=== PATIENT | female | born 1940 | race Caucasian/White ===

== ENCOUNTER → 2019-12-23 10:09 | Outpatient (BNVA) | payer MEDICARE, BC, SELFPAY | PROVIDERS: Family Provider Nurse Practitioner; PCP Nurse Practitioner; Visit Provider Nurse Practitioner | DX: E11.9 Type 2 diabetes mellitus without complications (principal); E03.9 Hypothyroidism, unspecified | CPT/HCPCS: 80053; 80061; 83036; 84443 ==

== ENCOUNTER 2020-06-15 12:46 | Outpatient (CLI) | payer MEDICARE, BC, SELFPAY ==
--- NOTE | 2020-06-15 13:14 | MM_ITS ---
WS: [id number] BILATERAL SCREENING DIGITAL MAMMOGRAM WITH CAD HISTORY: SCREENING COMPARISON: 01/01/2019 and 10/11/2017 Bilateral CC and MLO views submitted. Computer aided detection analyzed. Breast composition: There are scattered areas of fibroglandular density. No suspicious masses, microc alcifications or architectural distortion. Benign calcifications. MM/[place] [id number] IMPRESSION: BI-RADS: 2-Benign FOLLOW UP: 1 Year Follow-up
== END 2020-06-15 12:47 | disposition home or self-care (01) ==
LOC: RADSHAW 12:52
PROVIDERS: PCP Nurse Practitioner; Visit Provider Nurse Practitioner
DX: Z12.31 Encounter for screening mammogram for malignant neoplasm of breast (principal)
CPT/HCPCS: 77067

== ENCOUNTER → 2020-06-21 08:09 | Outpatient (BNVA) | payer MEDICARE, BC, SELFPAY | PROVIDERS: PCP Nurse Practitioner; Visit Provider Nurse Practitioner | DX: E03.8 Other specified hypothyroidism (principal); E11.65 Type 2 diabetes mellitus with hyperglycemia; E78.2 Mixed hyperlipidemia; I10 Essential (primary) hypertension | CPT/HCPCS: 80053; 80061; 83036; 84443 ==

== ENCOUNTER → 2020-09-13 08:04 | Outpatient (BNVA) | payer MEDICARE, BC, SELFPAY | PROVIDERS: PCP Nurse Practitioner; Visit Provider Nurse Practitioner | DX: E03.8 Other specified hypothyroidism (principal); I10 Essential (primary) hypertension | CPT/HCPCS: 84443 ==

== ENCOUNTER → 2020-12-10 08:11 | Outpatient (BNVA) | payer MEDICARE, BC, SELFPAY | PROVIDERS: PCP Nurse Practitioner; Visit Provider Nurse Practitioner | DX: E11.65 Type 2 diabetes mellitus with hyperglycemia (principal); E03.8 Other specified hypothyroidism; I10 Essential (primary) hypertension | CPT/HCPCS: 80053; 80061; 83036; 84443 ==

== ENCOUNTER → 2021-06-06 08:02 | Outpatient (BNVA) | payer MEDICARE, BC, SELFPAY | PROVIDERS: PCP Nurse Practitioner; Visit Provider Nurse Practitioner | DX: E11.65 Type 2 diabetes mellitus with hyperglycemia (principal); E03.8 Other specified hypothyroidism; I10 Essential (primary) hypertension; E78.2 Mixed hyperlipidemia | CPT/HCPCS: 80053; 80061; 83036; 84443 ==

== ENCOUNTER → 2021-11-28 08:08 | Outpatient (BNVA) | payer MEDICARE, BC, SELFPAY | PROVIDERS: PCP Nurse Practitioner; Visit Provider Nurse Practitioner | DX: E11.65 Type 2 diabetes mellitus with hyperglycemia (principal); E03.8 Other specified hypothyroidism | CPT/HCPCS: 80053; 80061; 83036; 84443 ==

== ENCOUNTER 2022-02-08 14:08 | Emergency (ER) | payer MEDICARE, BC, SELFPAY ==
--- NOTE | 2022-02-08 14:16 | W.ED.GENADLT ---
HPI - General Adult General: Chief complaint: Fall Stated complaint: FALL, R ARM DEFORMITY Time Seen by Provider: 02/08/22 14:13 History of Present Illness: Patient is an 81-year-old female with a history of adult onset hypothyroidism, DM, diverticulosis, hypertension presenting to the emergency room for evaluation after an episode of mechanical fall. Patient was walking outside when she tripped and fell landed on her right hand. Patient complains of right humerus pain and elbow pain. Patient denies hitting her head or LOC. Patient has no associate chest pain, shortness breath palpitation prior to the episode of fall. Patient has no other signs of injury. Denies any anticoagulation use. Onset:1 hr ago Duration:1 hr Location:home Severity:moderate Associated symptoms: Deny chest pain, dyspnea, nausea, rash, palpitations or vomiting Review of Systems Const: Denies: fever(s) or chills Eyes: Denies: change in vision ENMT: Denies: mouth pain Card: Denies: chest pain or palpitations Resp: Denies: dyspnea or non-productive cough GI: Denies: abdominal pain, nausea, vomiting or diarrhea : Denies: dysuria Musc: Reports: extremity pain (+R humerus and elbow pain) Skin/Breast: Denies: rash or new lesions Neuro: Denies: weakness in extremities Psych: Reports: other (Normal mood) Rashel/Lymph: Denies: easy bruising PFSH ED PFSH: Medical History (Updated 02/09/22 @ 11:39 by Jameson Dejesus MD) Adult onset hypothyroidism Controlled diabetes mellitus with hyperglycemia, without long-term current use of insulin Diverticulosis Essential hypertension Mixed hyperlipidemia Surgical History H/O total hysterectomy History of cholecystectomy History of colonoscopy with polyp Family History Other Cancer Heart disease Hyperlipidemia Social History Smoking and tobacco status: never smoked Second hand smoke exposure: No Smoking risk assessment/counseling performed?: No Alcohol intake: never Desire information about alcohol rehabilitation?: No Counseling given: No Desire information about substance/drug rehabilitation?: No Counseling given: No Caregiver/support person: No Lives independently: Yes Household members: none Housing: House Marital status: / Number of children: 3 service: No Current occupational status: retired History of recent travel: No Current gender identity: Female Physical Exam Const: COMMON NORMALS: alert HENMT: COMMON NORMALS: atraumatic HEAD & SCALP: atraumatic MOUTH: moist mucous membranes not abnormal Eye: COMMON NORMALS: EOMs intact bilaterally and conjunctivae normal CONJUNCTIVA: Yes conjunctivae normal Neck/C-Spine: COMMON NORMALS: full ROM and supple Resp: COMMON NORMALS: normal respiratory effort and clear to auscultation bilaterally AUSCULTATION: clear to auscultation bilaterally Cardio: COMMON NORMALS: regular rate RATE: regular rate GI: COMMON NORMALS: Soft to palpation and non-tender PALPATION: Yes Soft to palpation Extremity: COMMON NORMALS: full ROM NARRATIVE EXTREMITY EXAM: Mild right elbow tenderness to palpation, moderate right midshaft humerus tenderness to palpation with swelling, no other focal tenderness palpation in the right right upper extremity, 2+ radial pulses on the right extremity, cap refill less than 3 seconds, sensation intact in radial/median/ulnar distribution of the right hand. Neuro: SENSORIUM/ORIENTATION: Yes alert MOTOR EXAM: No Abnormal motor strength present and Other motor observations present (no focal motor deficits) Psych: COMMON NORMALS: speech normal SPEECH: Yes normal speech MOOD & AFFECT: Yes euthymic mood Course Vital Signs: Vital signs: Vital Signs Pulse Rate 62 02/08/22 15:48 Respiratory Rate 16 02/08/22 15:48 Blood Pressure 136/72 02/08/22 15:48 Pulse Oximetry 94 02/08/22 15:48 MDM - General Adult Medical Decision Making 81-year-old female with a history of hypothyroidism, diabetes, hypertension, hyperlipidemia presenting to the emergency room for evaluation of mechanical fall. Patient complains of right humerus and elbow pain. Patient has been moderate right humerus tenderness palpation midshaft with swelling. Range of motion intact of the affected extremity, neurovascular exam intact in the affected extremity X-ray showed right-sided humerus fracture. This was discussed with Dr. Dejesus who recommended sling close follow-up outpatient in clinic. I have given patient follow up with our trimming caser to be seen by our outpatient Orthopedics with Dr. Bose. Patient aware of a call from our trimming caser to schedule for appointment(s) and verbalizes understanding of the importance of following up. Rx: Tylenol, lidocaine patch, and menthol PRN pain Disposition: Discharge. Patient counseled regarding diagnostic impression, treatment plan. Patient given ED strict return precautions to return for continuation, worsening, or development of new symptoms. Instructed to f/u w/ PCP regarding symptoms today. Patient verbalized understanding. Lab Data Radiology Impressions Humerus X-Ray 02/08/22 14:23 IMPRESSION: 1. Displaced overriding midshaft humeral fracture as noted above. Elbow X-Ray 02/08/22 14:39 IMPRESSION: 1. No elbow fracture or dislocation. 2. Midshaft humeral fracture partially visualized Imaging Data Other Imaging: Radiologist's impression: [address] [place] [address] XRay Report Signed Patient: Kristen Schulz Unit #: [id number] : 1940 Age/Sex: 81 / F ADM Date: 02/08/22 Loc: ER Room/Bed: Attending Dr: Ordering Provider/Ordering MD: Tanya Dobbins MD Date of Service: 02/08/22 Procedure(s): XR elbow RT 2V 61456 Accession Number(s): [id number] Report Number: [id number] WS: [email or web address] Exam: XR elbow RT 2V [id number] Date/Time of Exam: 02/08/2022 2:52 PM Reason For Exam: pain No fracture or dislocation of the elbow. No obvious joint effusion. Soft tissues are unremarkable. Partially visualized displaced spiral fracture of the midshaft of the humerus is noted. XR/XR elbow RT 2V [id number] IMPRESSION: 1. No elbow fracture or dislocation. 2. Midshaft humeral fracture partially visualized ? Dictated By: Hamlet Keenan DO Signed By: Hamlet Keenan DO Signed Date/Time: 02/08/22 1501 DD/ [address] [address] XRay Report Signed Patient: Kristen Schulz Unit #: [id number] : 1940 Age/Sex: 81 / F ADM Date: 02/08/22 Loc: ER Room/Bed: Attending Dr: Ordering Provider/Ordering MD: Tanya Dobbins MD Date of Service: 02/08/22 Procedure(s): XR elbow RT 2V 96191 Accession Number(s): [id number] Report Number: [id number] WS: [email or web address] Exam: XR elbow RT 2V [id number] Date/Time of Exam: 02/08/2022 2:52 PM Reason For Exam: pain No fracture or dislocation of the elbow. No obvious joint effusion. Soft tissues are unremarkable. Partially visualized displaced spiral fracture of the midshaft of the humerus is noted. XR/XR elbow RT 2V [id number] IMPRESSION: 1. No elbow fracture or dislocation. 2. Midshaft humeral fracture partially visualized ? Dictated By: Hamlet Keenan DO Signed By: Hamlet Keenan DO Signed Date/Time: 02/08/22 1501 DD/ 1500 Discharge Plan Discharge Patient Disposition: Home Clinical Impression: Arm pain Condition: Stable Prescriptions: New lidocaine 5 % adhesive patch,medicated 1 patch topical DAILY PRN (Reason: pain) 30 Days Qty: 30 0RF Rx Instructions: leave on most painful area for up to 12 hrs Biofreeze (menthol) 5 % gel 1 ea topical BID PRN (Reason: pain) 10 Days Qty: 1 0RF No Action benazepril 40 mg tablet 40 mg PO DAILY Qty: 90 1RF furosemide 20 mg tablet 20 mg PO DAILY Qty: 90 1RF levothyroxine 50 mcg tablet 50 mcg PO .every other day Qty: 90 1RF lovastatin 40 mg tablet 40 mg PO DAILY Qty: 90 1RF (DME) OneTouch Ultra Blue Test Strip Strip See Rx Instructions .ROUTE .MEDSUPPLY Qty: 100 5RF Rx Instructions: 1 daily (DME) humeral fracture brace See Rx Instructions .Route .MEDSUPPLY Qty: 1 0RF Rx Instructions: As directed potassium chloride 10 mEq capsule, extended release 10 meq PO EVERY OTHER DAY 0RF metformin 500 mg tablet extended release 24 hr 500 mg PO DAILY 0RF Discharge Orders: Discharge ED (Routine); Ordered 02/08/22 Ordered By: Tanya Dobbins Referrals: Myron Oshea, [facility] [Primary Care Provider] - Discharge Diet: Advance as tolerated Discharge Activity: Increase activity as tolerated Activity Restrictions/Additional Instructions: Our trimming caser will have you follow-up with Dr. Dejesus in the next few days. You would be expected to have a phone call with our trimming caser who will put you on the schedule. You can expect a call from us in the next 2-3 days. If you don't hear from us, call us back in the emergency room at [phone]. Please come back to the emergency room have new or new concerning complaints. Please use your pain medicine as instructed. Coding Level of Care Code ED Supervisor Train Operations for Chg Fwd Exam Comprehensive
--- NOTE | 2022-02-08 14:23 | XR_ITS ---
WS: [email or web address] Exam: [place] [id number] Date/Time of Exam: 02/08/2022 2:23 PM Reason For Exam: pain Displaced spiral midshaft fracture of the humerus noted. There is anterior displacement of the lower fragment and rotation. There is some overriding with [id number] apposition. No other fractures. Bon e infarct in the humeral neck. XR/[place] [id number] IMPRESSION: 1. Displaced overriding midshaft humeral fracture as noted above.
--- NOTE | 2022-02-08 14:39 | XR_ITS ---
WS: [id number] Exam: XR elbow RT 2V [id number] Date/Time of Exam: 02/08/2022 2:52 PM Reason For Exam: pain No fracture or dislocation of the elbow. No obvious joint effusion. Soft tissues are unremarkable. Pa rtially visualized displaced spiral fracture of the midshaft of the humerus is noted. XR/XR elbow RT 2V [id number] IMPRESSION: 1. No elbow fracture or dislocation. 2. Midshaft humeral fracture partially visualized
[2022-02-08 14:59] VITALS: BMI 26.5
[2022-02-08 15:26] VITALS: BP 140/74; PULSE 66; RESP 16; O2SAT 95
[2022-02-08 15:48] VITALS: BP 136/72; PULSE 62; RESP 16; O2SAT 94
--- NOTE | 2022-02-09 11:36 | DCPLANNER ---
Addendum entered by Celina Francis 02/10/22 12:39: Patient had a follow up appointment scheduled for 02.09.22 with at ortho - patient did attend appointment. Original Note: partnership manager had message to schedule a follow up appointment for patient with ortho. partnership manager sent patients information to the front office staff at ortho. Patients information will be printed and reviewed. Clinic will call patient with appointment information.
== END 2022-02-08 15:48 | disposition home or self-care (01) ==
PROVIDERS: Emergency Provider Emergency Medicine; PCP Nurse Practitioner
DX: S42.301A Unspecified fracture of shaft of humerus, right arm, initial encounter for closed fracture (principal); W01.0XXA Fall on same level from slipping, tripping and stumbling without subsequent striking against object, initial encounter
CPT/HCPCS: 73060; 73070; 99283

== ENCOUNTER → 2022-02-09 11:13 | Outpatient (BNVA) | payer MEDICARE, BC, SELFPAY | PROVIDERS: PCP Nurse Practitioner; Referring Provider Emergency Medicine; Visit Provider Orthopaedic Surgery | DX: S42.301A Unspecified fracture of shaft of humerus, right arm, initial encounter for closed fracture (principal); W01.0XXA Fall on same level from slipping, tripping and stumbling without subsequent striking against object, initial encounter | CPT/HCPCS: 24500 ==

== ENCOUNTER → 2022-02-22 13:35 | Outpatient (BNVA) | payer MEDICARE, BC, SELFPAY | PROVIDERS: PCP Nurse Practitioner; Visit Provider Orthopaedic Surgery | DX: S42.301A Unspecified fracture of shaft of humerus, right arm, initial encounter for closed fracture (principal); X58.XXXA Exposure to other specified factors, initial encounter | CPT/HCPCS: 73060; 99024 ==

== ENCOUNTER → 2022-03-22 14:34 | Outpatient (BNVA) | payer MEDICARE, BC, SELFPAY | PROVIDERS: PCP Nurse Practitioner; Visit Provider Orthopaedic Surgery | DX: S42.301A Unspecified fracture of shaft of humerus, right arm, initial encounter for closed fracture (principal); X58.XXXA Exposure to other specified factors, initial encounter | CPT/HCPCS: 73060; 99024 ==

== ENCOUNTER 2022-03-31 06:00 | Outpatient (RCR) | payer MEDICARE, BC, SELFPAY | END 2022-04-01 23:55 | disposition home or self-care (01) | LOC: APT 06:00 | PROVIDERS: PCP Nurse Practitioner; Referring Provider Orthopaedic Surgery; Visit Provider Orthopaedic Surgery | DX: S42.291D Other displaced fracture of upper end of right humerus, subsequent encounter for fracture with routine healing (principal); X58.XXXD Exposure to other specified factors, subsequent encounter | CPT/HCPCS: 97110; 97162 ==

== ENCOUNTER 2022-04-03 06:00 | Outpatient (RCR) | payer MEDICARE, BC, SELFPAY | END 2022-05-03 23:59 | disposition home or self-care (01) | LOC: APT 06:00 | PROVIDERS: PCP Nurse Practitioner; Referring Provider Orthopaedic Surgery; Visit Provider Orthopaedic Surgery | DX: S42.291D Other displaced fracture of upper end of right humerus, subsequent encounter for fracture with routine healing (principal); X58.XXXD Exposure to other specified factors, subsequent encounter | CPT/HCPCS: 97110; 97140 ==

== ENCOUNTER → 2022-04-19 09:38 | Outpatient (BNVA) | payer MEDICARE, BC, SELFPAY | PROVIDERS: PCP Nurse Practitioner; Visit Provider Orthopaedic Surgery | DX: S42.301A Unspecified fracture of shaft of humerus, right arm, initial encounter for closed fracture (principal); X58.XXXA Exposure to other specified factors, initial encounter | CPT/HCPCS: 73060; 99024 ==

== ENCOUNTER 2022-05-04 06:00 | Outpatient (RCR) | payer MEDICARE, BC, SELFPAY | END 2022-06-01 14:51 | disposition home or self-care (01) | LOC: APT 06:00 | PROVIDERS: PCP Nurse Practitioner; Visit Provider Orthopaedic Surgery | DX: S42.291D Other displaced fracture of upper end of right humerus, subsequent encounter for fracture with routine healing (principal); X58.XXXD Exposure to other specified factors, subsequent encounter | CPT/HCPCS: 97110 ==

== ENCOUNTER → 2022-05-17 10:14 | Outpatient (BNVA) | payer MEDICARE, BC, SELFPAY | PROVIDERS: PCP Nurse Practitioner; Visit Provider Orthopaedic Surgery | DX: X58.XXXA Exposure to other specified factors, initial encounter (principal); S42.301A Unspecified fracture of shaft of humerus, right arm, initial encounter for closed fracture | CPT/HCPCS: 73060; 99024 ==

== ENCOUNTER → 2022-05-22 08:00 | Outpatient (BNVA) | payer MEDICARE, BC, SELFPAY | PROVIDERS: PCP Nurse Practitioner; Visit Provider Nurse Practitioner | DX: E11.65 Type 2 diabetes mellitus with hyperglycemia (principal); E03.8 Other specified hypothyroidism | CPT/HCPCS: 80053; 80061; 83036; 84443 ==

== ENCOUNTER → 2022-06-14 10:12 | Outpatient (BNVA) | payer MEDICARE, BC, SELFPAY | PROVIDERS: PCP Nurse Practitioner; Visit Provider Orthopaedic Surgery | DX: S42.301A Unspecified fracture of shaft of humerus, right arm, initial encounter for closed fracture (principal); X58.XXXA Exposure to other specified factors, initial encounter | CPT/HCPCS: 73060; 99024 ==

== ENCOUNTER 2022-07-05 12:45 | Outpatient (CLI) | payer MEDICARE, BC, SELFPAY ==
--- NOTE | 2022-07-05 12:53 | MM_ITS ---
WS: [id number] BILATERAL 3D TOMOSYNTHESIS DIGITAL SCREENING MAMMOGRAPHY WITH CAD CLINICAL INFORMATION: Z12.39 - Encounter for other screening for malignant neop... HISTORY: Screening mammogram. No current complaints. COMPARISON: June 15, 2020 TECHNIQUE: Bilateral CC and MLO views. FINDINGS: Scattered fibroglandular densities bilaterally. Dense nodular breast tissue subareolar LEFT breast ne ar the 12:00 position. This appears more dense compared to previous. Recommend LEFT breast diagnostic mammography and ultrasound in further evaluation. RIGHT breast is unchanged. Punctate and lucent centered calcifications. Vascular calcification. MM/[place] [id number] IMPRESSION: BI-RADS: 0-Incomplete: Need additional imaging evaluation FOLLOW UP: Need Additional Imaging Recommend LEFT breast diagnostic mammography and ultrasound in further evaluati on.
== END 2022-07-05 12:46 | disposition home or self-care (01) ==
LOC: RAD 12:45
PROVIDERS: PCP Nurse Practitioner; Visit Provider Nurse Practitioner
DX: Z12.31 Encounter for screening mammogram for malignant neoplasm of breast (principal)
CPT/HCPCS: 77063; 77067

== ENCOUNTER 2022-08-01 14:08 | Outpatient (CLI) | payer MEDICARE, BC, SELFPAY ==
--- NOTE | 2022-08-01 14:17 | MM_ITS ---
WS: [id number] LEFT 3D TOMOSYNTHESIS DIGITAL MAMMOGRAPHY WITH CAD CLINICAL INFORMATION: R92.8 - Other abnormal and inconclusive findings on diagn... COMPARISON: July 05, 2022 TECHNIQUE: 3 views of the left breast were obtained. FINDINGS: Scattered fibroglandular densities of the left breast. Punctate and lucent centered calcifications. A gain seen is the dens is irregular breast tissue at the areola near the 12:00 position. This compress es out on some images but persists on the SMLO view. Ultrasound described below. ULTRASOUND BREAST LEFT TECHNIQUE: Ultrasound left breast focused area of concern. CLINICAL INFORMATION: R92.8 - Other abnormal and inconclusive findings on diagn... FINDINGS: Ultrasound LEFT breast at the 12:00 position. Irregular hypoechoic lesion at the 12:00 position at th e areola measuring 8.2 x 6.6 x 8.1 mm. This is somewhat ill-defined and nonspecific. Recommend ultras ound-guided biopsy in further evaluation. Incidental simple cyst at the 12:00 position measuring 5 mm. MM/[place] [id number] IMPRESSION: BI-RADS: 4-Suspicious Finding-Biopsy Should Be Considered FOLLOW UP: US Guided Biopsy Recommended Recommend ultrasound-guided biopsy LEFT breast lesion.
== END 2022-08-01 14:09 | disposition home or self-care (01) ==
LOC: RAD 14:08
PROVIDERS: PCP Nurse Practitioner; Visit Provider Nurse Practitioner
DX: R92.8 Other abnormal and inconclusive findings on diagnostic imaging of breast (principal); N63.25 Unspecified lump in the left breast, overlapping quadrants
CPT/HCPCS: 76642; 77061; G0279

== ENCOUNTER → 2022-08-17 08:54 | Outpatient (BNVA) | payer MEDICARE, BC, SELFPAY | PROVIDERS: PCP Nurse Practitioner; Visit Provider Nurse Practitioner | DX: E03.8 Other specified hypothyroidism (principal) | CPT/HCPCS: 84443 ==

== ENCOUNTER 2022-09-20 08:40 | Outpatient (CLI) | payer MEDICARE, BC, SELFPAY ==
--- NOTE | 2022-09-20 09:35 | US_ITS ---
WS: [id number] ULTRASOUND BREAST LEFT TECHNIQUE: Ultrasound left breast focused area of concern. CLINICAL INFORMATION: R92.8 - Other abnormal and inconclusive findings on diagn... COMPARISON: None. FINDINGS: Ultrasound LEFT breast demonstrates small ill-defined hypoechoic area at the 12:00 position areola on ly well seen in one plane. This appears to represent dense fibrotic tissue rather than a focal lesion and is probably benign. Recommend 6 month follow-up LEFT breast ultrasound. Biopsy not performed. Fi ndings discussed with patient at time of study. US/US breast LT limited* [id number] IMPRESSION: BI-RADS 3 probably benign FOLLOW UP: 6 month follow-up LEFT breast ultrasound
== END 2022-09-20 08:41 | disposition home or self-care (01) ==
LOC: RAD 08:44
PROVIDERS: PCP Nurse Practitioner; Visit Provider Nurse Practitioner
DX: R92.8 Other abnormal and inconclusive findings on diagnostic imaging of breast (principal)
CPT/HCPCS: 76642

== ENCOUNTER → 2022-11-27 08:18 | Outpatient (BNVA) | payer MEDICARE, BC, SELFPAY | PROVIDERS: PCP Nurse Practitioner; Visit Provider Nurse Practitioner | DX: E03.8 Other specified hypothyroidism (principal); E11.65 Type 2 diabetes mellitus with hyperglycemia | CPT/HCPCS: 80053; 80061; 83036; 84443 ==

== ENCOUNTER → 2022-11-29 09:00 | Outpatient (BNVA) | payer MEDICARE, BC, SELFPAY | PROVIDERS: PCP Nurse Practitioner; Visit Provider Nurse Practitioner | DX: M25.531 Pain in right wrist (principal) | CPT/HCPCS: 71046; 73110 ==

== ENCOUNTER 2023-03-20 12:46 | Outpatient (CLI) | payer MEDICARE, BC, SELFPAY ==
--- NOTE | 2023-03-20 13:00 | US_ITS ---
WS: [id number] ULTRASOUND BREAST LEFT TECHNIQUE: Ultrasound left breast focused area of concern. CLINICAL INFORMATION: R92.8 - Other abnormal and inconclusive findings on diagn... COMPARISON: Ultrasound September 20, 2022 August 01, 2022 FINDINGS: Ultrasound LEFT breast at the areola. Normal underlying parenchymal tissue. No cystic or solid lesion s. No suspicious lesions to target for biopsy. Previously described dense fibroglandular tissue in this area has a more normal appearance today. No new suspicious findings. Findings are benign. Recommend return to annual screening mammography. US/US breast LT limited* [id number] IMPRESSION: BI-RADS 2 benign Return to annual screening mammography.
== END 2023-03-20 12:47 | disposition home or self-care (01) ==
PROVIDERS: PCP Nurse Practitioner; Visit Provider Nurse Practitioner
DX: R92.8 Other abnormal and inconclusive findings on diagnostic imaging of breast (principal)
CPT/HCPCS: 76642

== ENCOUNTER → 2023-05-21 08:03 | Outpatient (BNVA) | payer MEDICARE, BC, SELFPAY | PROVIDERS: PCP Nurse Practitioner; Visit Provider Nurse Practitioner | DX: E03.8 Other specified hypothyroidism (principal); E11.65 Type 2 diabetes mellitus with hyperglycemia | CPT/HCPCS: 80053; 80061; 83036; 84443; 85025 ==

== ENCOUNTER → 2023-11-05 10:02 | Outpatient (BNVA) | payer MEDICARE, BC, SELFPAY | PROVIDERS: PCP Nurse Practitioner; Visit Provider Nurse Practitioner | DX: E11.9 Type 2 diabetes mellitus without complications (principal) | CPT/HCPCS: 80053; 80061; 83036; 84443; 85025 ==

== ENCOUNTER 2023-11-27 13:29 | Outpatient (CLI) | payer MEDICARE, BC, SELFPAY ==
--- NOTE | 2023-11-27 13:30 | MM_ITS ---
WS: [id number] VIEWS: MLO and CC views both breasts. 3D digital tomosynthesis is also included in this exam. 10/11/2016, 10/11/2017, 01/01/2019 and 06/15/2020. 07/05/2022. Findings: There was no sign of mass, architectural distortion or suspicious calcification in either breast. The re are scattered areas of fibroglandular density Impression: MM/[place] [id number] BI-RADS: 2-Benign finding. FOLLOW-UP: 1 Year Follow-up This mammogram was also analyzed by the Computer Aided Detection System R2 Imag e Varnish Cooker.
== END 2023-11-27 13:30 | disposition home or self-care (01) ==
LOC: MOBLMAM 13:33
PROVIDERS: PCP Nurse Practitioner; Visit Provider Nurse Practitioner
DX: Z12.31 Encounter for screening mammogram for malignant neoplasm of breast (principal)
CPT/HCPCS: 77063; 77067

== ENCOUNTER → 2024-04-21 08:06 | Outpatient (BNVA) | payer MEDICARE, BC, SELFPAY | PROVIDERS: PCP Nurse Practitioner; Visit Provider Nurse Practitioner | DX: E11.9 Type 2 diabetes mellitus without complications (principal) | CPT/HCPCS: 80053; 80061; 82607; 83036; 84443; 85025 ==

== ENCOUNTER 2024-06-03 06:30 | Outpatient (RCR) | payer MEDICARE, BC, SELFPAY | END 2024-07-03 23:59 | disposition home or self-care (01) | LOC: APT 06:30 | PROVIDERS: PCP Nurse Practitioner; Visit Provider Nurse Practitioner | DX: R26.9 Unspecified abnormalities of gait and mobility (principal) | CPT/HCPCS: 97110; 97161; 97530 ==

== ENCOUNTER → 2024-06-19 13:17 | Outpatient (BNVA) | payer MEDICARE, BC, SELFPAY | PROVIDERS: PCP Nurse Practitioner; Visit Provider Nurse Practitioner | DX: I10 Essential (primary) hypertension (principal) | CPT/HCPCS: 80053 ==

== ENCOUNTER 2024-07-01 08:45 | Outpatient (CLI) | payer MEDICARE, BC, SELFPAY ==
--- NOTE | 2024-07-01 09:00 | CT_ITS ---
WS: [id number] CT HEAD NONCONTRAST HISTORY: W19.XXXA - Unspecified fall, initial encounter TECHNIQUE: Contiguous axial imaging performed through the brain. Bone and soft tissue windows. Sagitt al and coronal reformats reviewed. All CT scans at [facility] use at least one of these dose optimization techniques: automated exposure control; mA and/or kV adjustment per patient size (includ es targeted exams where dose is matched to clinical indication); or iterative reconstruction. DLP: 1105.24 mGy.cm COMPARISON: None available. No acute intracranial hemorrhage, midline shift or mass effect. Mild atrophy with moderate small vessel ischemic changes in the white matter. No infarct. Mild bilate ral cerebellar atrophy also. Ventricles: Ventricles are very mildly prominent which is probably related to the central and periphe ral atrophy. No inferior displacement of the cerebellar tonsils. Paranasal sinuses: As visualized are clear. Mastoid air cells: Cerumen in the external auditory canals. Calvarium and scalp: Skull is intact with no soft tissue edema or swelling. CT/CT head wo con* [id number] IMPRESSION: 1. No acute intracranial hemorrhage or edema. 2. Mild cerebellar and cerebral atrophy with moderate small vessel disease. 3. Mild ventriculomegaly on the basis of atrophy.
== END 2024-07-01 08:46 | disposition home or self-care (01) ==
LOC: RAD 08:46
PROVIDERS: PCP Nurse Practitioner; Visit Provider Nurse Practitioner
DX: I67.82 Cerebral ischemia (principal); W19.XXXA Unspecified fall, initial encounter
CPT/HCPCS: 70450

== ENCOUNTER 2024-07-04 06:00 | Outpatient (RCR) | payer MEDICARE, BC, SELFPAY | END 2024-08-02 23:59 | disposition home or self-care (01) | LOC: APT 06:00 | PROVIDERS: PCP Nurse Practitioner; Visit Provider Nurse Practitioner | DX: R26.9 Unspecified abnormalities of gait and mobility (principal) | CPT/HCPCS: 97110; 97116; 97530 ==

== ENCOUNTER → 2024-07-07 08:01 | Outpatient (BNVA) | payer MEDICARE, BC, SELFPAY | PROVIDERS: PCP Nurse Practitioner; Visit Provider Nurse Practitioner | DX: E11.9 Type 2 diabetes mellitus without complications (principal) | CPT/HCPCS: 80053; 80061; 82607; 83036; 84443; 85025 ==

== ENCOUNTER 2024-08-03 06:00 | Outpatient (RCR) | payer MEDICARE, BC, SELFPAY | END 2024-09-02 23:59 | disposition home or self-care (01) | LOC: APT 06:00 | PROVIDERS: PCP Nurse Practitioner; Visit Provider Nurse Practitioner | DX: R26.9 Unspecified abnormalities of gait and mobility (principal) | CPT/HCPCS: 97110; 97116; 97530 ==

== ENCOUNTER → 2025-01-08 08:23 | Outpatient (BNVA) | payer MEDICARE, BC, SELFPAY | PROVIDERS: PCP Nurse Practitioner; Visit Provider Nurse Practitioner | DX: E11.9 Type 2 diabetes mellitus without complications (principal) | CPT/HCPCS: 80053; 80061; 82607; 83036; 84443; 85025 ==

== ENCOUNTER 2025-02-10 09:13 | Outpatient (CLI) | payer MEDICARE, BC, SELFPAY ==
--- NOTE | 2025-02-10 09:20 | MM_ITS ---
WS: [id number] BILATERAL 3D TOMOSYNTHESIS DIGITAL SCREENING MAMMOGRAPHY WITH CAD CLINICAL INFORMATION: Z12.31 - Encounter for screening mammogram for malignant ... HISTORY: Screening mammogram. No current complaints. COMPARISON: 2023 TECHNIQUE: Bilateral CC and MLO views. FINDINGS: The breasts are composed of heterogeneous fibroglandular density tissue, which can limit the detection of small underlying mass lesions. No suspicious mass, asymmetry, calcifications, or architectural distortion. No evidence of malignancy. Incidental punctate and lucent centered calcifications. Vascular calcification. MM/MM [facility] tomosynthesis [id number] IMPRESSION: DENSITY: The breasts are heterogeneously dense, which may obscure small masses. BI-RADS: 2 - Benign FOLLOW UP: 1 Year Follow-up Recommend return to annual screening mammography.
== END 2025-02-10 09:14 | disposition home or self-care (01) ==
PROVIDERS: PCP Nurse Practitioner; Visit Provider Nurse Practitioner
DX: Z12.31 Encounter for screening mammogram for malignant neoplasm of breast (principal); R92.333 Mammographic heterogeneous density, bilateral breasts; R92.1 Mammographic calcification found on diagnostic imaging of breast
CPT/HCPCS: 77063; 77067

== ENCOUNTER 2025-05-16 18:47 | Emergency (ER) | payer MEDICARE, BC, SELFPAY ==
[2025-05-16 18:54] VITALS: BP 139/77; PULSE 80; RESP 18; TEMP 37.1; O2SAT 93; BMI 27.3
[2025-05-16 18:59] VITALS: BP 139/77; O2SAT 93
--- NOTE | 2025-05-16 19:18 | XRR_ITS ---
PROCEDURE INFORMATION: Exam: XR Right Elbow Exam date and time: 05/16/2025 7:45 PM Age: 85 years old Clinical indication: Injury or trauma; Fall; Blunt trauma (contusions or hematomas); Elbow; Right TECHNIQUE: Imaging protocol: Radiologic exam of the right elbow. Views: 3 or more views. COMPARISON: CR (UP EXM, ) 05/16/2025 7:45 PM FINDINGS: Bones/joints: Demineralization of the visualized bones, limiting sensitivity for nondisplaced fractures. Comminuted partially included distal humeral metadiaphysis fracture with 1 shaft width anterior displacement. Mild degenerative disease of the elbow joint. No elbow joint effusion. Soft tissues: There is soft tissue swelling. XR/XR elbow RT min 3V* [id number] IMPRESSION: Comminuted fracture of the distal humeral metadiaphysis with 1 shaft width anterior displacement.
--- NOTE | 2025-05-16 19:18 | XRR_ITS ---
PROCEDURE INFORMATION: Exam: XR Right Humerus Exam date and time: 05/16/2025 7:45 PM Age: 85 years old Clinical indication: Injury or trauma; Fall; Blunt trauma (contusions or hematomas); Arm, upper; Right TECHNIQUE: Imaging protocol: Radiologic exam of the right humerus. Views: 2 or more views. COMPARISON: CR (UP EXM, ) 05/16/2025 7:45 PM FINDINGS: Bones/joints: Chronic fracture deformity of the humeral diaphysis. Demineralization of the visualized bones, limiting sensitivity for nondisplaced fractures. Moderate degenerative disease of the right acromioclavicular joint. There are mild degenerative changes in the right glenohumeral joint. Low-grade chondroid lesion in the proximal humeral metaphysis. Comminuted fracture of the distal humeral metadiaphysis with lateral apex angulation estimated at 30 degrees, with 1 cm foreshortening and lateral displacement of the distal fragment. Soft tissues: There is soft tissue swelling. XR/[place] [id number] IMPRESSION: Acute comminuted displaced fracture of the distal humeral metadiaphysis.
--- NOTE | 2025-05-16 19:19 | W.ED.FALL ---
HPI - Fall General: Chief Complaint: Fall Stated Complaint: right arm pain s/p fall Time Seen by Provider: 05/16/25 18:49 History of Present Illness: 85-year-old female with DM, presents to ED after a fall on gravel directly on her right arm. She complains of right mid arm pain. Denies any other symptoms. This occurred just prior to arrival. Patient was brought in by EMS. No lower extremity pain. No redness. No fevers lately. No dysuria or issues with oligoanuria/change in urination. Daughter remarks that she does have gait instability issues in the past. Patient has a history of right mid arm humeral fracture in 2021, with medical healing without reduction at that time from orthopedist. Patient went to physical therapy and wore sling at that time. Associated symptoms-after fall: Denies abdominal pain, chest pain, headache(s) or neck pain Related Data Previous Rx's ?Medication ?Instructions ?Recorded benazepril 40 mg tablet 40 mg PO DAILY #90 tabs 01/12/25 blood sugar diagnostic (OneTouch #50 ea 01/12/25 Ultra Test strips) cyanocobalamin (vitamin B-12) 1,000 mcg IM .every 8 weeks #3 mL 01/12/25 1,000 mcg/mL injection solution furosemide 20 mg tablet 20 mg PO DAILY #90 tabs 01/12/25 levothyroxine 50 mcg tablet 50 mcg PO DAILY #90 tabs 01/12/25 lovastatin 40 mg tablet 40 mg PO DAILY #90 tabs 01/12/25 metformin 500 mg tablet,extended 1,000 mg (2 x 500 mg) PO DAILY 01/12/25 release 24 hr #180 tabs potassium chloride 10 mEq 10 meq PO EVERY OTHER DAY #45 caps 01/12/25 capsule,extended release Allergies Allergy/AdvReac Type Severity Reaction Status Date / Time Penicillins Allergy ALGY-Rash Verified 05/06/25 13:05 Review of Systems Const: Denies: fever(s), change in appetite or change in sleep pattern Eyes: Denies: change in vision ENMT: Denies: throat pain or dry mouth Card: Reports: other (Hypertension and hyperlipidemia); Denies: chest pain or swelling of feet/ankles Resp: Denies: dyspnea or non-productive cough GI: Denies: abdominal pain, nausea or vomiting Musc: Reports: extremity pain, extremity swelling, joint pain, joint swelling and joint stiffness; Denies: neck pain or back pain Skin/Breast: Denies: rash, pruritus or erythema Neuro: Reports: numbness in extremities (legs); Denies: headache(s) or dizziness Psych: Denies: anxiety, depression, irritability or suicidal ideation PFSH ED PFSH: Medical History (Updated 05/16/25 @ 20:40 by JENNY Blair) Small vessel disease, cerebrovascular Controlled diabetes mellitus with hyperglycemia, without long-term current use of insulin Essential hypertension Mixed hyperlipidemia Diverticulosis Adult onset hypothyroidism Surgical History History of colonoscopy with polyp H/O total hysterectomy History of cholecystectomy Family History Other Cancer Heart disease Hyperlipidemia Social History Smoking and tobacco/nicotine status: never used tobacco/nicotine Second hand smoke exposure: No Alcohol intake: never Substance/Drug Use: never Caregiver/support person: No Lives independently: Yes Household members: none Housing: House Marital status: / Number of children: 3 service: No Current occupational status: retired Do you think of yourself as: Straight/Heterosexual Current gender identity: Female Physical Exam Const: COMMON NORMALS: no acute distress and average body habitus GENERAL APPEARANCE: cooperative and well kempt ORIENTATION/CONSCIOUSNESS: Yes oriented to person, Yes oriented to place and Yes oriented to time HENMT: COMMON NORMALS: normocephalic, atraumatic and external ears normal HEAD & SCALP: normocephalic and atraumatic NOSE: No nasal discharge present EXTERNAL EAR: Yes external ears normal MOUTH: Normal oral and palatal mucosa present Eye: COMMON NORMALS: Equal, round and reactive pupils present and conjunctivae normal EYELID: eyelids normal CONJUNCTIVA: Yes conjunctivae normal PUPIL: Yes Equal, round and reactive pupils present Chest: CHEST: Yes Symmetrical chest wall rise Resp: COMMON NORMALS: clear to auscultation bilaterally AUSCULTATION: clear to auscultation bilaterally Cardio: COMMON NORMALS: regular rate and regular rhythm RATE: regular rate RHYTHM: regular rhythm OTHER: Radial pulses present GI: COMMON NORMALS: Normal to inspection, nondistended, normoactive bowel sounds present, Soft to palpation, non-tender and No hepatosplenomegaly present PALPATION: Yes Soft to palpation and Yes No hepatosplenomegaly present : COMMON NORMALS: Yes no CVA tenderness BLADDER/KIDNEY EXAM: Yes no CVA tenderness Back/Pelvis: COMMON NORMALS: no CVA tenderness Extremity: RIGHT UPPER EXTREMITY: Yes upper arm Right upper arm: Yes inspection (Deformity), Yes palpation (Pain distally) and Yes neurovascular exam (Sensation intact) and Yes wrist (Axial load is negative for pain, no snuffbox tenderness) Right wrist: Yes ROM (Range of motion intact, valgus/varus stress without pain.) Neuro: SENSORIUM/ORIENTATION: Yes oriented to person, Yes oriented to place and Yes oriented to time SPEECH: speech normal GAIT: Yes Antalgic gait present (left ) and Yes Assistive device used cane (Quad ) Psych: COMMON NORMALS: speech normal APPEARANCE: Yes well kempt ATTITUDE: Yes engaged SPEECH: Yes normal speech MOOD & AFFECT: Yes elevated mood MEMORY/COGNITION: Yes memory grossly impaired Impared memory type(s): short term Course Consultations: Consultation #1: Discussed with Dr. Cline that recommends coaptation splint sling and follow-up with him. This traction will help reduce it. To physically reduce it given the old fracture this most likely would not succeed. Vital Signs: Vital signs: Vital Signs Temperature 98.7 F 05/16/25 18:54 Pulse Rate 80 05/16/25 18:54 Respiratory Rate 18 05/16/25 18:54 Blood Pressure 139/77 05/16/25 18:59 Pulse Oximetry 93 05/16/25 18:59 Oxygen Delivery Me thod Room Air 05/16/25 18:59 MDM - Fall Medical Decision Making Patient declined any other [place] other than the 5/325 x 2 that was sent home with her. Discussed the case with on-call orthopedist, Dr. Morris, with old and new fracture. Patient was placed in traction as per his orders. I did evaluate the patient after the traction, radial pulses are present, patient is comfortable, will be sent home for follow-up with orthopedist. All of her questions answered to her satisfaction. Lab Data Radiology Impressions Elbow X-Ray 05/16/25 19:18 IMPRESSION: Comminuted fracture of the distal humeral metadiaphysis with 1 shaft width anterior displacement. Humerus X-Ray 05/16/25 19:18 IMPRESSION: Acute comminuted displaced fracture of the distal humeral metadiaphysis. All radiology interpretation(s) finalized by discharge Discharge Plan Discharge Patient Disposition: Home Clinical Impression: Closed fracture of distal end of right humerus Qualifiers: Encounter type: initial encounter Fracture morphology: other fracture Fracture alignment: displaced Qualified Code(s): S42.491A - Other displaced fracture of lower end of right humerus, initial encounter for closed fracture Condition: Stable Prescriptions: No Action metformin 500 mg tablet extended release 24 hr 1,000 mg PO DAILY Qty: 180 1RF benazepril 40 mg tablet 40 mg PO DAILY Qty: 90 1RF cyanocobalamin (vitamin B-12) 1,000 mcg/mL solution 1,000 mcg IM .every 8 weeks Qty: 3 1RF furosemide 20 mg tablet 20 mg PO DAILY Qty: 90 1RF levothyroxine 50 mcg tablet 50 mcg PO DAILY Qty: 90 1RF lovastatin 40 mg tablet 40 mg PO DAILY Qty: 90 1RF potassium chloride 10 mEq capsule, extended release 10 meq PO EVERY OTHER DAY Qty: 45 1RF (DME) OneTouch Ultra Test Strip See Rx Instructions .Route Qty: 50 5RF Rx Instructions: one day Discharge Orders: Discharge ED (Routine); Ordered 05/16/25 Ordered By: Tova Veronica Referrals: Myron Oshea, POTATO PANCAKE FRIER-C [Primary Care Provider, Family Practice] Cristóbal Morris MD [Physician, Orthopedics] - 4-7 days Discharge Diet: Usual diet Discharge Activity: Limit activity as instructed Patient Instructions: Arm Fracture in Adults (ED), Opioid Safety, Pain Management, Patient Portal & Anuj Instructions Activity Restrictions/Additional Instructions: - No activity with right arm -Call Dr. Morris's office on Sunday for a follow-up next week -Ice will help control the pain - Caution on sedation medications as this can cause issues with walking, confusion. Utilizing a minimal fracture to avoid any additional side effects. Add laxatives to avoid constipation. You may utilize Tylenol instead of your analgesic. -Return to ED with worsening pain, fever greater than 100.4 ?F Print Language: Citizen Of [place] Coding Level of Care Code ED Interior Design Coordinator for Eliud Aguila
[2025-05-16] MEDS: tetanus-dipt-pertussis 0.5 mL SDV IM (19:58)
[2025-05-16] MEDS: HYDROcodone-acetaminophen 5-325 mg Tablet 2 TAB PO (21:10)
== END 2025-05-16 21:18 | disposition home or self-care (01) ==
PROVIDERS: Emergency Provider Physician Assistant; PCP Nurse Practitioner
DX: S42.491A Other displaced fracture of lower end of right humerus, initial encounter for closed fracture (principal); Z79.84 Long term (current) use of oral hypoglycemic drugs; E11.9 Type 2 diabetes mellitus without complications; E78.2 Mixed hyperlipidemia; I10 Essential (primary) hypertension; W19.XXXA Unspecified fall, initial encounter
CPT/HCPCS: 73060; 73080; 90471; 90715; 99283; J9999

== ENCOUNTER → 2025-05-19 13:41 | Outpatient (BNVA) | payer MEDICARE, BC, SELFPAY | PROVIDERS: PCP Nurse Practitioner; Referring Provider Physician Assistant; Visit Provider Orthopaedic Surgery | DX: S42.491A Other displaced fracture of lower end of right humerus, initial encounter for closed fracture (principal); W19.XXXA Unspecified fall, initial encounter | CPT/HCPCS: 73060; 99204 ==

== ENCOUNTER → 2025-05-20 14:22 | Outpatient (BNVA) | payer MEDICARE, BC, SELFPAY | PROVIDERS: PCP Nurse Practitioner; Visit Provider Nurse Practitioner | DX: E11.9 Type 2 diabetes mellitus without complications (principal); I10 Essential (primary) hypertension; E11.65 Type 2 diabetes mellitus with hyperglycemia; E53.8 Deficiency of other specified B group vitamins; N39.0 Urinary tract infection, site not specified | CPT/HCPCS: 80053; 81000; 82607; 83036; 84443; 87086 ==

== ENCOUNTER 2025-05-21 13:13 | Outpatient (CLI) | payer MEDICARE, BC, SELFPAY ==
--- NOTE | 2025-05-21 13:14 | XR_ITS ---
WS: [id number] XR chest 2V* [id number] REASON FOR EXAM: I10 - Essential (primary) hypertension FINDINGS: The chest is relatively unchanged compared to 11/29/2022. Mild to moderate tortuosity of the thoracic aorta. Normal heart size. Calcified granulomatous disease bilaterally. No acute pulmonary parenchymal or pleural abnormality. Moderate to significant degenerative spondylosis in the mid and lower thoracic spine. XR/XR chest 2V* [id number] IMPRESSION: Stable chest without acute abnormality.
== END 2025-05-21 13:14 | disposition home or self-care (01) ==
LOC: RAD 13:14
PROVIDERS: PCP Nurse Practitioner; Visit Provider Nurse Practitioner
DX: I10 Essential (primary) hypertension (principal); Q25.46 Tortuous aortic arch; J98.4 Other disorders of lung; M47.894 Other spondylosis, thoracic region
CPT/HCPCS: 71046; 93005

== ENCOUNTER 2025-05-27 08:52 | Day surgery (SDC) | payer MEDICARE, BC, SELFPAY ==
[2025-05-27] VITALS (16 sets, daily range): BP systolic 101–122; BP diastolic 52–72; PULSE 65–85; RESP 16–21; TEMP 36.3–37.6; O2SAT 90–95; BMI 26.2
--- NOTE | 2025-05-27 | XR_ITS ---
WS: [id number] XR elbow RT 2V [id number] REASON FOR EXAM: ERIC PICS FINDINGS: Intramedullary rods placed with fixation of comminuted supracondylar fracture. Long screw arthrodesis fixation of the radial ulnar joint. Surgical appliances are intact and in proper position and alignment. XR/XR elbow RT 2V [id number] IMPRESSION: Complex distal humeral fracture with internal fixation and arthrodesis as above .
[2025-05-27 10:09] LABS: Anion Gap 17.6 (5-19); Blood Urea Nitrogen 18 mg/dL (8-23); Calcium 9.2 mg/dL (8.5-10.5); Carbon Dioxide 22 mmol/L (22-29); Chloride 100 mmol/L (98-107); Creatinine Clr Calc Pharmacy 34.4089; Glucose 160 mg/dL (65-115); Osmolality Calculated 285 mOsm/kg (285-295); Potassium 4.6 mmol/L (3.5-5.1); Sodium 135 mmol/L (136-145)
--- NOTE | 2025-05-27 11:07 | ANES.PREANE2 ---
Pre-Anesthetic Assessment Height/Weight: Height 1.6 m Weight 67.132 kg Temp Pulse Resp BP Pulse Ox O2 Del Method 99.6 F 65 16 122/65 94 Room Air 05/27/25 09:55 05/27/25 09:55 05/27/25 09:55 05/27/25 09:55 05/27/25 09:55 05/27/25 09:55 Operation Date: 05/27/25 10:35 Proposed Procedures p Open Treatment of Periarticular Fracture of RIGHT Elbow(Right) - Cristóbal Morris MD Familial anesthetic complications: none Was Beta Britt taken within 24 hours: N/A Was Clonidine taken within 24 hours: N/A Last intake: Intake Last Liquid Date 05/26/25 Last Liquid Time 20:00 Last Solid Date 05/26/25 Last Solid Time 19:00 Social No alcohol and No tobacco Exam alert, oriented x 3, clear to auscultation bilaterally and regular rate & rhythm Airway Mallampati: Class I Dentition: full CV/HEM Hypertension Metabolic Diabetes Mellitus, Hyperlipidemia and Thyroid Disease Anesthetic Plan ASA status: 3 Anesthesia: General and Regional (specify below) Risk of > 500 ml blood loss (7ml/kg in children): No Medications/Allergies Home Medications ?Medication ?Instructions ?Recorded ?Confirmed ?Last Taken ?Type benazepril 40 mg tablet 40 mg PO DAILY #90 tabs 01/12/25 05/27/25 05/26/25 Rx blood sugar diagnostic (OneTouch #50 ea 01/12/25 05/27/25 Unknown Rx Ultra Test strips) cyanocobalamin (vitamin B-12) 1,000 mcg IM .every 8 weeks #3 mL 01/12/25 05/27/25 05/05/25 Rx 1,000 mcg/mL injection solution furosemide 20 mg tablet 20 mg PO DAILY #90 tabs 01/12/25 05/27/25 05/26/25 Rx levothyroxine 50 mcg tablet 50 mcg PO DAILY #90 tabs 01/12/25 05/27/25 05/26/25 Rx lovastatin 40 mg tablet 40 mg PO DAILY #90 tabs 01/12/25 05/27/25 05/26/25 Rx potassium chloride 10 mEq 10 meq PO EVERY OTHER DAY #45 caps 01/12/25 05/27/25 05/26/25 Rx capsule,extended release cefuroxime axetil 250 mg tablet 250 mg PO Q12H #14 tabs 05/26/25 05/27/25 05/26/25 Rx metformin 500 mg tablet,extended 500 mg PO BID 05/26/25 05/27/25 05/26/25 History release 24 hr Allergies Allergy/AdvReac Type Severity Reaction Status Date / Time Penicillins Allergy ALGY-Rash Verified 05/27/25 09:06 Current Medications Generic Name Dose Route Start Last Admin Trade Name Nori PRN Reason Stop Dose Admin Sodium Chloride 1,000 mls @ 30 mls/hr 05/27/25 09:00 05/27/25 09:30 Sodium Chloride 0.9% IV 05/28/25 08:59 30 mls/hr .Q24H STEVEN Administration PFSH Anesthesia Medical History (Updated 05/24/25 @ 00:00 by RAMANDEEP Aguirre) Small vessel disease, cerebrovascular Controlled diabetes mellitus with hyperglycemia, without long-term current use of insulin Essential hypertension Mixed hyperlipidemia Diverticulosis Adult onset hypothyroidism Surgical History History of colonoscopy with polyp H/O total hysterectomy History of cholecystectomy Family History Other Cancer Heart disease Hyperlipidemia Social History Smoking and tobacco/nicotine status: never used tobacco/nicotine Second hand smoke exposure: No Alcohol intake: never Substance/Drug Use: never Caregiver/support person: No Lives independently: Yes Household members: none Housing: House Marital status: / Number of children: 3 service: No Current occupational status: retired Do you think of yourself as: Straight/Heterosexual Current gender identity: Female Data Anesthesia 05/27/25 09:25 BMP 05/27/25 09:25 Sodium 135 L Potassium 4.6 Chloride 100 Carbon Dioxide 22 BUN 18 Creatinine 1.1 H Glucose 160 H Calcium 9.2 Anesthesia Procedures Nerve Block Nerve Block 1: Main Anesthesia: general anesthesia Time Out Performed: Yes Consent: requested by attending/covering physician, from patient, from other, risks and benefits reviewed and patient agrees to proceed Nerve block location: supraclavicular (R) Anesthesia monitors applied: pulse oximetry, EKG, BP cuff and oxygen Nerve block position: semi sitting Anesthetic Used: ropivicaine 0.5% (20 ml) and with decadron (4 mg) Ultrasound used to: recognize landmarks, visualize and ID brachial plexus and in supraclavicular region Interscalene/Femoral BLK: 4 stimuplex 21 g needle used for position and inplane approach, visualize local anesthetic spread and no vascular puncture identified Injection: neg aspiration of heme Patient Tolerated Procedure: well Complications: none
--- NOTE | 2025-05-27 11:42 | W.PM.OPSUD ---
Surgery/Procedure H&P Update DATE OF PROCEDURE: May 27, 2025 DATE H&P PERFORMED: 05/19/25 H&P UPDATE INFORMATION: I have reviewed H&P completed within last 30 days, I have examined patient prior to procedure and No changes to prior documentation PREOP DIAGNOSIS: Fracture distal right humerus PLANNED PROCEDURE: Operation Date: 05/27/25 10:35 Proposed Procedures p Open Treatment of Periarticular Fracture of RIGHT Elbow(Right) - Cristóbal Morris MD
--- NOTE | 2025-05-27 15:03 | XR_ITS ---
WS: [id number] Exam: XR hip RT 1V wo/w pel [id number] Date/Time of Exam: 05/27/2025 3:03 PM Reason For Exam: Recent fall No acute fracture. Mild narrowing of the joint compartment. Normal soft tissues. Moderately advanced degenerative change of the LEFT hip. XR/XR hip RT 1V wo/w pel [id number] IMPRESSION: 1. No fracture. Degenerative change.
--- NOTE | 2025-05-27 15:05 | PM.OP ---
Operative Report Date of procedure: May 27, 2025 Surgeon: Cristóbal Morris MD Procedure: Preoperative diagnosis: Fracture distal right humerus Postoperative diagnosis: Same Procedure: Open reduction with internal fixation of right distal humerus fracture Surgeon: Cristóbal Morris MD Rodding Anode Worker: RAJI Adams's assistance was necessary for positioning patient, assistance during the procedure, wound closure, dressings and splint placement. Anesthesia: General EBL: 275 cc Indications: Kristen is an 85-year-old white female who had a fall back approximately 10 to 14 days ago. Injuring her right arm. She is seen in the emergency room at [facility] x-rays demonstrated comminuted distal humerus fracture just supracondylar. 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 Most recent fracture is just distal to this malunion by only a centimeter or 2. After evaluation is felt patient would most benefit from open reduction internal fixation of this fracture since it so comminuted displaced. All risk benefits treatment alternatives were discussed with she and her family and they are agreeable to this at this time. Procedure: After obtaining her consent patient had a block applied to the right upper extremity in the preop holding area. Patient then taken to the operative room placed on the op table supine position general anesthetic administered. Once good anesthesia was achieved right arm was prepped and draped usual fashion. After surgical timeout it was determined that her arm was too short to try and put a sterile tourniquet on therefore no tourniquet was used. With her arm crossed across her body on a towel bump longitudinal incision was made from just distal to the olecranon on the surface of the ulna along the posterior olecranon and up the posterior aspect of the upper arm. Sharp dissection to get him down to subcutaneous tissue electrocautery used for hemostasis. Sharp and blunt dissection with Metzenbaum scissors then used to expose the ulna and its soft tissue structures. Ulna was then scored with electrocautery for a chevron osteotomy. Guidepin was then drilled from the proximal olecranon along the course of the intramedullary canal of the ulna. This is then reamed over this with a appropriate reamer to place a 6.5 partially-threaded screw at a later point in the procedure to repair the osteotomy. Once drill hole was made a chevron osteotomy was done of the proximal ulna with a microsagittal saw. Olecranon fragment was now dissected posteriorly and proximally. This exposed the articular surface. Sharp and blunt fashion ulnar nerve was identified and dissected out to allow for mobility during this procedure. Dissection was then taken up along the borders of the triceps both medially and laterally to allow for exposure of the distal humerus fracture. Once adequate dissection had been done and expose fracture fragments fracture hematoma was evacuated from the area with suction as well as curettes and rongeur. Once the bone edges were clear attempts were made to try and reduce this however it was noted at the most proximal portion of this fracture line was the old malunion which caused quite a bit of deformity of the main diaphysis of the distal humerus and therefore no plate could be placed because of this obstacle. Several attempts were made to trying to reduce this and find a position to put a plate and screws on there but it was felt that due to the quality of her bone and the complexity of her fracture that further destruction of the bone may occur trying to do this. Therefore, at this time flexible rods were selected to be placed. Drill holes placed through the lateral epicondyle and a 3 mm flexible david was then placed within this driven on proximally through the distal fragment and then guided into the endometrial canal of the proximal fragment. Once this was in place a second drill hole was made over the medial epicondyle protecting the ulnar nerve during this time. This time a 2 mm flexible david was placed with distal hold and guided through the distal fragment into the proximal fragment and the endometrial canal. Traction and extension of the elbow allow for alignment of the fracture fragments. Once in place 18-gauge Ti wire was then doubled up and placed at 2 points where the fracture fragments met and tied down in order to hold all fragments together and no linear fashion. Once these are in place interoperative fluoroscopy demonstrated adequate reduction and fixation. K wires were cut off and knots were buried into the soft tissues. Subsequently repair of the fascial layers of the triceps and the extensor mechanism of the elbow was then done with #1 Vicryl [id number] sutures. Incisions were made to allow the flexible rods to exit the skin and that these were cut off at appropriate length. Distal ends of the flexible rods were bent over to ensure no further migration into the humerus. Several of the skin edges had to be reapproximated with #1 Prolene [id number] sutures. Subcutaneous tissue reapproximated #1 Vicryl interrupted sutures. Skin was closed with skin ashley. Wounds are clean and dry dressed with Xeroform gauze sterile gauze dressing. Open pins were covered with sterile gauze padding. Webril was applied the arm long-arm splint is with a stirrup about the elbow was applied an Colby wrap for compression. Patient was held at 90 degrees while this hardened. Patient placed in arm sling awakened and transferred to recovery room in stable condition
--- NOTE | 2025-05-27 15:42 | PC.NURSE ---
1535 accepted into room 267 with Fay RN at side - 02 at 2LNC - no distress noted in patient upon this nurse exiting room - VSS - family at side
--- NOTE | 2025-05-27 15:44 | ANE.PACU2 ---
Inpatient post-anesthesia follow up: Airway intact: Yes Vital signs: Temperature 97.6 F Pulse Rate 75 Respiratory Rate 18 Blood Pressure 122/59 Pulse Oximetry 94 Oxygen Delivery Me thod Nasal Cannula Oxygen Flow Rate 2 Fraction of Inspir ed Oxygen Hydration adequate: Yes Nausea and vomiting: No Pain level: 1 Mental status: Baseline
--- NOTE | 2025-05-27 16:48 | P.CONIM_ITS ---
Providers/Reason For Consult 2 Consulting Physician/Specialty*: Peter Velazquez Reason for Consult*: Medical mgmt Requesting Physician: Dr. Morris Attending Physician: Cristóbal Morris MD Primary Care Provider: ANTHONY Tirado History of Present Illness History of Present Illness Kristen Schulz is a 85 year old female presenting after fall with fracture of the distal right humerus. Now s/p ORIF. Hospitalists consulted for medical mgmt. Review of Systems 2 Const: Denies: fever(s), chills or body aches Eyes: Denies: change in vision or blurry vision ENMT: Denies: throat pain or mouth pain Card: Denies: chest pain, palpitations or lightheadedness Resp: Denies: dyspnea, productive cough or pain on inspiration GI: Denies: abdominal pain, nausea or vomiting : Denies: urinary hesitancy Musc: Reports: extremity pain Skin/Breast: Denies: rash, pruritus, erythema or skin swelling Neuro: Denies: headache(s), numbness in extremities or weakness in extremities Psych: Denies: anxiety or depression Medications/Allergies Home Medications ?Medication ?Instructions ?Recorded ?Confirmed ?Last Taken ?Type benazepril 40 mg tablet 40 mg PO DAILY #90 tabs 01/0105/27/25 05/26/25 Rx blood sugar diagnostic (OneTouch #50 ea 01/12/2505/27 Unknown Rx Ultra Test strips) cyanocobalamin (vitamin B-12) 1,000 mcg IM .every 8 we eks #3 mL 01/12/25 05/27/25 05/05/25 Rx 1,000 mcg/mL injection solution furosemide 20 mg tablet 20 mg PO DAILY #90 tabs 01/0105/27/25 05/26/25 Rx levothyroxine 50 mcg tablet 50 mcg PO DAILY #90 tabs 0 01/12/25 05/27/25 05/26/25 Rx lovastatin 40 mg tablet 40 mg PO DAILY #90 tabs 01/0105/27/25 05/26/25 Rx potassium chloride 10 mEq 10 meq PO EVERY OTHER DAY #4 5 caps 01/12/25 05/27/25 05/26/25 Rx capsule,extended release cefuroxime axetil 250 mg tablet 250 mg PO Q12H #14 tab s 05/26/25 05/27/25 05/26/25 Rx metformin 500 mg tablet,extended 500 mg PO BID 5 05/27/25 05/26/25 History release 24 hr Allergies Allergy/AdvReac Type Severity Reaction Status Date / Time Penicillins Allergy ALGY-Rash Verified 05/27/25 09:06 PFSH Acute 2 PFSH: Medical History (Updated 05/27/25 @ 16:51 by Agapito Sharp MD) Pre-diabetes Small vessel disease, cerebrovascular Controlled diabetes mellitus with hyperglycemia, without long-term current use of insulin Essential hypertension Mixed hyperlipidemia Diverticulosis Adult onset hypothyroidism Surgical History History of colonoscopy with polyp H/O total hysterectomy History of cholecystectomy Family History Other Cancer Heart disease Hyperlipidemia Social History Smoking and tobacco/nicotine status: never used tobacco/nicotine Second hand smoke exposure: No Alcohol intake: never Substance/Drug Use: never Caregiver/support person: No Lives independently: Yes Household members: none Housing: House Marital status: / Number of children: 3 service: No Current occupational status: retired Do you think of yourself as: Straight/Heterosexual Current gender identity: Female Vitals/I&O/Wt Last Vital Signs Temp 97.8 F 05/27/25 16:25 Pulse 72 05/27/25 16:25 Resp 16 05/27/25 16:25 BP 102/59 05/27/25 16:25 Pulse Ox 92 05/27/25 16:25 O2 Del Method Nasal Cannula 05/27/25 16:25 O2 Flow Rate 2 05/27/25 15:23 05/27/25 05/27/25 05/27/25 06:59 14:59 22:59 Intake Total 450 / 450 Output Total 300 / 300 Balance 150 / 150 Weight last 48 hrs Weight 67.132 kg Physical Exam 2 Const: COMMON NORMALS: patient oriented x3 HENMT: COMMON NORMALS: normocephalic and atraumatic HEAD & SCALP: n ormocephalic and atraumatic Eye: COMMON NORMALS: Equal, round and reactive pupils present, EOMs intact bilaterally and no papilledema PUPIL: Yes Equal, round and reactive pupils present DIRECT OPHTHALMOSCOPY: Yes no papilledema Neck/C-Spine: COMMON NORMALS: full ROM and no lymphadenopathy Resp: COMMON NORMALS: normal respiratory effort, No retractions and clear to auscultation bilaterally AUSCULTATION: clear to auscultation bilaterally Cardio: COMMON NORMALS: regular rate, regular rhythm, S1 normal heart sound present, S2 normal heart sound present and No gallops present (Cardio) RATE: regular rate RHYTHM: regular rhythm HEART SOUNDS: S1 normal heart sound present and S2 normal heart sound present GI: COMMON NORMALS: Soft to palpation, non-tender and no masses PALPATION: Yes Soft to palpation Extremity: COMMON NORMALS: capillary refill normal and no clubbing, cyanosis or edema NARRATIVE EXTREMITY EXAM: right arm sling s/p ORIF Neuro: COMMON NORMALS: patient oriented x3 and CN's II-XII intact bilaterally Psych: COMMON NORMALS: mental status grossly normal, Normal thought process present, cooperative and speech normal SPEECH: Yes normal speech THOUGHT PROCESS: Normal thought process present Data 05/27/25 09:25 A&P Assessment and plan 1. Fracture of right humerus: 2. Essential hypertension: 3. Adult onset hypothyroidism: 4. Controlled diabetes mellitus with hyperglycemia, without long-term current use of insulin: Plan: 85 year old female presenting with fracture of the distal right humerus. Distal right humerus fracture - S/P ORIF per ortho - analgesics/antiemetics Prediabetes - cont. metformin HTN - cont. benazepril Hyperlipidemia - cont. statin Hypothyroidism - cont. levothyroxine PPx: per ortho Diet: regular Disposition - patient is minimally ambulatory at home, should be using walker but she is using cane and needing assistance. Family asking to go to rehab on D/C. She lives home alone. - PT/OT/CM for discharge planning PDMP PDMP Reviewed: Not Reviewed Consult Attestations 2 Time Spent in Patient Care: 16 - 35 minutes (>than 50% of time sp ent in counselling and/or direct pt care on unit) . Coding Level of Care Code Acute Code for Chg Fwd Diagnoses Fracture of right humerus S42.301A Essential hypertension I10 Adult onset hypothyroidism E03.8 Controlled diabetes mellitus with hyperglycemia, without long-term current use of insulin E11.65
--- NOTE | 2025-05-27 17:41 | PM.CONSULT ---
Providers/Reason For Consult Consulting Physician/Specialty*: Octavio Berman MD hospitalist Reason for Consult*: Diabetes Requesting Physician: Cristóbal Morris MD Attending Physician: Cristóbal Morris MD Primary Care Provider: ANTHONY Tirado History of Present Illness History of Present Illness Kristen Schulz is a 85 year old female with history of diabetes and hypertension fell Sunday the lost her footing on gravel. She was seen by Dr. Morris and underwent right mid humerus ORIF today. Patient had a humeral fracture 2021 in the mid humerus which healed with sling as directed by Dr. Dejesus at the time. She states that healed with the bump. Dr. Morris stated that the surgery was extensive to try and work around that deformity. Patient has diabetes and states her blood sugars in the morning 120-121 A1c 6.6. Metformin twice a day caused her loose stools so she takes it just once a day. She got constipated this past Sunday so took a mag citrate and had a cleansing of her bowels on Sunday. Patient is only taking 1-1/2 of her pain tablets at home the rest time just taking extra strength Tylenol. She has had right hip and flank pain evaluate by x-ray and operating room which was negative. Review of Systems Narrative: General No fevers chills Cardiovascular no chest pain palpitations edema Respiratory positive for cough chronic no production GI no nausea vomiting she has had loose stools and constipation as described above no dysuria hematuria incontinence Neuro no seizures strokes limb weakness Medications/Allergies Home Medications ?Medication ?Instructions ?Recorded ?Confirmed ?Last Taken ?Type benazepril 40 mg tablet 40 mg PO DAILY #90 tabs 01/12/25 05/27/25 05/26/25 Rx blood sugar diagnostic (OneTouch #50 ea 01/12/25 05/27/25 Unknown Rx Ultra Test strips) cyanocobalamin (vitamin B-12) 1,000 mcg IM .every 8 weeks #3 mL 01/12/25 05/27/25 05/05/25 Rx 1,000 mcg/mL injection solution furosemide 20 mg tablet 20 mg PO DAILY #90 tabs 01/12/25 05/27/25 05/26/25 Rx levothyroxine 50 mcg tablet 50 mcg PO DAILY #90 tabs 01/12/25 05/27/25 05/26/25 Rx lovastatin 40 mg tablet 40 mg PO DAILY #90 tabs 01/12/25 05/27/25 05/26/25 Rx potassium chloride 10 mEq 10 meq PO EVERY OTHER DAY #45 caps 01/12/25 05/27/25 05/26/25 Rx capsule,extended release cefuroxime axetil 250 mg tablet 250 mg PO Q12H #14 tabs 05/26/25 05/27/25 05/26/25 Rx metformin 500 mg tablet,extended 500 mg PO BID 05/26/25 05/27/25 05/26/25 History release 24 hr Allergies Allergy/AdvReac Type Severity Reaction Status Date / Time Penicillins Allergy ALGY-Rash Verified 05/27/25 09:06 PFSH Acute PFSH: Medical History (Updated 05/27/25 @ 16:51 by Agapito Sharp MD) Pre-diabetes Small vessel disease, cerebrovascular Controlled diabetes mellitus with hyperglycemia, without long-term current use of insulin Essential hypertension Mixed hyperlipidemia Diverticulosis Adult onset hypothyroidism Surgical History History of colonoscopy with polyp H/O total hysterectomy History of cholecystectomy Family History Other Cancer Heart disease Hyperlipidemia Social History (Updated 05/27/25 @ 17:47 by Octavio Berman MD) Smoking and tobacco/nicotine status: never used tobacco/nicotine Second hand smoke exposure: No Alcohol intake: never Substance/Drug Use: never Additional social history: She wants full code as discussed with Octavio Berman MD and in the presence of her daughter Farida. Farida is a retired mill machinist at a [email or web address] in [place]. 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 Do you think of yourself as: Straight/Heterosexual Current gender identity: Female Vitals/I&O/Wt Last Vital Signs Temp 97.8 F 05/27/25 17:30 Pulse 78 05/27/25 17:30 Resp 17 05/27/25 17:30 BP 103/56 05/27/25 17:30 Pulse Ox 93 05/27/25 17:30 O2 Del Method Nasal Cannula 05/27/25 17:30 O2 Flow Rate 1.5 05/27/25 16:40 05/27/25 05/27/25 05/27/25 06:59 14:59 22:59 Intake Total 450 / 450 Output Total 300 / 300 Balance 150 / 150 Weight last 48 hrs Weight 66.134 kg Weight 67.132 kg Physical Exam Narrative: General well-developed well-nourished female in no acute cardiopulmonary distress CV regular rate and rhythm Lungs clear to auscultation bilaterally Abdomen positive bowel tones soft nontender Calves no tenderness cords pretrip edema Right hip is with painless range of motion and percussing on the heel up but straight leg no reproduction of pain Mood and affect normal Data 05/27/25 09:25 A&P Assessment and plan 1. Controlled diabetes mellitus with hyperglycemia, without long-term current use of insulin: Continue metformin 500 mg extended release twice a day. Will hold if she gets diarrhea start sliding scale insulin and a 1500-calorie ADA diet 2. Essential hypertension: Stable but with a cough attributable to benazepril. Will stop that and put her on losartan 3. Mixed hyperlipidemia: Continue lovastatin or substitute with atorvastatin here 4. Fracture of right humerus: Status post repair by Dr. Morris and currently in a sling. Anticipate physical therapy and home PDMP PDMP Reviewed: Not Reviewed Consult Attestations Medical Necessity Statement: Anticipate the patient will be observed overnight with discharge tomorrow Coding Level of Care Code 27840 Diagnoses Controlled diabetes mellitus with hyperglycemia, without long-term current use of insulin E11.65 Essential hypertension I10 Mixed hyperlipidemia E78.2 Fracture of right humerus S42.301A Time Spent (min) 50
[2025-05-27] MEDS: sennosides-docusate Tablet 2 TAB PO (17:58)
[2025-05-27 23:41] LABS: Hematocrit 31.7 % (36-47); Hemoglobin 10.20 g/dL (11.27-16.99); Mean Corpuscular HGB Conc 32.2 g/dL (30-55); Mean Corpuscular Hemoglobin 29.1 pg (27-33); Mean Corpuscular Volume 90.3 fl (85-98); Nucleated Red Blood Cells % 0 %; Platelet Count 235 10^3/cmm (157-399); Red Blood Count 3.51 10^6/uL (3.85-5.65); White Blood Count 12.89 10^3/uL (3.29-11.43)
[2025-05-28] VITALS (7 sets, daily range): BP systolic 92–113; BP diastolic 57–70; PULSE 75–104; RESP 15–18; TEMP 36.5–36.9; O2SAT 91–95
[2025-05-28 00:08] LABS: Anion Gap 15.7 (5-19); Blood Urea Nitrogen 18 mg/dL (8-23); Calcium 8.1 mg/dL (8.5-10.5); Carbon Dioxide 20 mmol/L (22-29); Chloride 103 mmol/L (98-107); Creatinine Clr Calc Pharmacy 41.7674; Glucose 189 mg/dL (65-115); Osmolality Calculated 285 mOsm/kg (285-295); Potassium 4.7 mmol/L (3.5-5.1); Sodium 134 mmol/L (136-145)
[2025-05-28] MEDS: ATORVASTATIN 20 MG TABLET PO (08:43)
[2025-05-28] MEDS: sennosides-docusate Tablet 2 TAB PO (08:45)
--- NOTE | 2025-05-28 14:09 | P.PN_ITS ---
Subjective 2 Subjective: 85-year-old female underwent r ight mid humerus ORIF yesterday with Dr. Morris. Today she is reports some drainage from her dressing which is under an Colby wrap and under her sling. Patient reports that she has normal sensation in her hand. She is companied by her son Zeeshan and daughter Farida both at bedside. Patient is under observation and receiving therapy due to shuffling gait. Therapist recommended dose of Sinemet for possible Parkinson's variant without tremor Vitals/I&O/Wt Last Vital Signs Temp 98.1 F 05/28/25 12:00 Pulse 81 05/28/25 12:00 Resp 18 05/28/25 12:00 BP 113/70 05/28/25 12:00 Pulse Ox 95 05/28/25 12:00 O2 Del Method Room Air 05/28/25 12:00 O2 Flow Rate 2 05/27/25 20:00 05/27/25 05/28/25 05/28/25 22:59 06:59 14:59 Intake Total 440 / 890 699.333 / 1589.333 770 / 770 Output Total 600 / 900 100 / 1000 Balance -160 / -10 599.333 / 589.333 770 / 770 Weight last 48 hrs Weight 67.631 kg Weight 66.134 kg Weight 67.132 kg Physical Exam 2 Narrative: General well-developed well-nourished female in no acute cardiopulmonary distress CV regular rate and rhythm Lungs clear to auscultation bilaterally Abdomen positive bowel tones soft nontender Calves no tenderness cords pretibial edema Right hand is puffy underneath her Colby wrap and sling. She has good strength for handgrip right side and normal sensation reported to light touch Data 05/27/25 23:37 05/27/25 23:37 A&P Assessment and plan 1. Controlled type 2 diabetes mellitus with hyperglycemia, without long-term current use of insulin: Continue metformin 500 mg extended release twice a day. Will hold if she gets diarrhea start sliding scale insulin and a 1500-calorie ADA diet 2. Essential hypertension: Continue losartan at current dose blood pressure is 113/70 3. Mixed hyperlipidemia: Continue lovastatin or substitute with atorvastatin here 4. Fracture of right humerus: Status post repair by Dr. Morris and currently in a sling. Anticipate physical therapy and home 5. Shuffling gait: Suspicious for Parkinson's. Concur with the physical therapist recommendation and will start Sinemet 10/ and monitor for improvement PDMP PDMP Reviewed: Not Reviewed Attestations 2 Medical Necessity Statement*: Patient remains in the hospital for physical therapy and patient and family desire placement Coding Level of Care Code 65950 Diagnoses Controlled type 2 diabetes mellitus with hyperglycemia, without long-term current use of insulin E11.65 Essential hypertension I10 Mixed hyperlipidemia E78.2 Fracture of right humerus S42.301A Shuffling gait R26.89 Time Spent (min) 25
--- NOTE | 2025-05-28 17:18 | P.PN_ITS ---
Subjective 2 Subjective: Kristen is an 85-year-old female patient, who is now postoperative day 1 after right distal humerus ORIF. Patient underwent successful procedure yesterday and has done well in the interim postoperatively. She has worked with therapy services and is currently being observed for shuffling gait by the hospitalist/PT. Discussing possible treatment for concern of Parkinson's variant without tremor. Overall though she is doing quite well. She is resting in bed with her family at bedside. Her postoperative pain has been managed. Her primary complaint today is that she is having continued bloody drainage from her postoperative dressing and splint. No complaints of shortness of breath, chest pain/pressure or difficulty breathing. Denies any symptoms of numbness, tingling or burning to the right upper extremity. Medications: Reviewed: Yes Vitals/I&O/Wt Last Vital Signs Temp 97.7 F 05/28/25 16:08 Pulse 79 05/28/25 16:08 Resp 16 05/28/25 16:08 BP 92/57 05/28/25 16:08 Pulse Ox 91 05/28/25 16:08 O2 Del Method Room Air 05/28/25 16:08 O2 Flow Rate 2 05/27/25 20:00 05/28/25 05/28/25 05/28/25 06:59 14:59 22:59 Intake Total 699.333 / 1589.333 770 / 770 1000 / 1770 Output Total 100 / 1000 Balance 599.333 / 589.333 770 / 770 1000 / 1770 Weight last 48 hrs Weight 149 lb 1.6 oz Weight 145 lb 12.8 oz Weight 148 lb Physical Exam 2 Const: COMMON NORMALS: no acute distress, average body habitus, patient oriented x3, no limitations, alert and well nourished GENERAL APPEARANCE: c ooperative; not anxious and not combative ORIENTATION/CONSCIOUSNESS: Yes awake, Yes oriented to person, Yes oriented to place and Yes oriented to time HENMT: COMMON NORMALS: normocephalic and atraumatic HEAD & SCALP: n ormocephalic and atraumatic Resp: COMMON NORMALS: normal respiratory effort Extremity: RIGHT UPPER EXTREMITY: Yes elbow joint (Postoperative dressing and splint (posterior with stirrup) in place.) Right elbow: Yes other (Noted dried bloody discharge to postop dressings. No purulent drainage.) and Yes hand & digits Right hand and digits: Yes ROM exam (Able to wiggle all fingers.) and Yes neurovascular exam (Sensation intact to light touch. Rapid cap refill.) O THER: Denies numbness, tingling or burning to RUE. Neuro: COMMON NORMALS: patient oriented x3 SENSORIUM/ORIENTATION: Yes alert, Yes oriented to person, Yes oriented to place and Yes oriented to time Psych: ATTITUDE: Yes engaged Skin: COMMON NORMALS: no rashes or lesions noted, turgor normal and no jaundice GENERAL SKIN EXAM: no rashes or lesions noted and turgor normal Data 05/27/25 23:37 05/27/25 23:37 A&P Assessment and plan 1. Other closed displaced fracture of distal end of right humerus with routine healing, subsequent encounter: She continues to do well postoperatively. States that she is comfortable in her postoperative splint. Pain is well-managed. At this time, the plan is for her to discharge to an inpatient rehabilitation facility for short-term care. This will likely take place early tomorrow morning. Patient will continue her postoperative dressings and splint, with the use of the sling. Discussed that her postoperative drainage is expected due to the acute trauma and recent postoperative state. They will contact the office if this worsens or does not continue to decrease over the next 2 to 3 days. Will follow-up in the clinic in [address] Morris. Continue to work with physical therapy until discharge. 2. Controlled type 2 diabetes mellitus with hyperglycemia, without long-term current use of insulin: 3. Essential hypertension: 4. Mixed hyperlipidemia: 5. Shuffling gait: PDMP PDMP Reviewed: Last Reviewed 05/28/25 17:43 EDT by Vicki Trejo, COMPLAINT ADJUSTER- Attestations 2 Medical Necessity Statement*: Patient will remain in hospital for continued work with physical therapy, medications for possible Parkinson variant without tremor and plan discharge to inpatient rehabilitation facility in the morning. Coding Level of Care Code Acute Code for Chg Fwd Diagnoses Other closed displaced fracture of distal end of right humerus with routine healing, subsequent encounter S42.491D Encounter type: subsequent encounter Humerus Location: distal Fracture type: closed Fracture alignment: displaced Fracture healing: with routine healing Fracture morphology: other fracture Controlled type 2 diabetes mellitus with hyperglycemia, without long-term current use of insulin E11.65 Essential hypertension I10 Mixed hyperlipidemia E78.2 Shuffling gait R26.89
[2025-05-29] VITALS: BP 100/61; PULSE 79; RESP 14; TEMP 36.9; O2SAT 94
[2025-05-29] MEDS: ondansetron 2 mg/ML SDV 2 mL 4 MG IVP (02:53)
[2025-05-29 06:00] VITALS: BP 96/51; PULSE 63; RESP 17; TEMP 37.3; O2SAT 91
[2025-05-29 07:24] VITALS: BP 96/56; PULSE 73; RESP 16; TEMP 36.8; O2SAT 90
[2025-05-29] MEDS: sennosides-docusate Tablet 2 TAB PO (08:21)
[2025-05-29] MEDS: ATORVASTATIN 20 MG TABLET PO (08:21)
--- NOTE | 2025-05-29 09:00 | PC.NURSE ---
Report called to Negrita MCDONALD at [facility]. rehab
[2025-05-29 09:12] VITALS: BP 96/56; PULSE 73; RESP 16; TEMP 36.8; O2SAT 90
--- NOTE | 2025-05-29 11:00 | PC.OT ---
OT Note: Pt. unable to be seen due to upcoming discharge.
--- NOTE | 2025-05-29 11:38 | P.DS_ITS ---
Discharge Providers Date of Discharge: May 29, 2025 Attending Provider at Discharge: Cristóbal Morris MD Primary Care Provider: ANTHONY Tirado Diagnoses at Discharge Discharge Diagnosis 1. Other closed displaced fracture of distal end of right humerus with routine healing, subsequent encounter: 2. Controlled type 2 diabetes mellitus with hyperglycemia, without long-term current use of insulin: 3. Essential hypertension: 4. Mixed hyperlipidemia: 5. Shuffling gait: Reason for Visit Reason for Visit: T14.8XXA Brief History: Kristen is an 85-year-old white female who had a fall back approximately 10 to 14 days ago. Injuring her right arm. She is seen in the emergency room at [facility] and x-rays demonstrated comminuted distal humerus fracture just supracondylar. 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 Most recent fracture is just distal to this malunion by only a centimeter or 2. After evaluation is felt patient would most benefit from open reduction internal fixation of this fracture since it so comminuted displaced. All risk benefits treatment alternatives were discussed with she and her family and they are agreeable to this at this time. She underwent successful open reduction with internal fixation of the right distal humerus on May 27, [address] Cristóbal Morris MD. The patient was then admitted for observation postoperatively and has expected discharge to inpatient rehabilitation facility. Hospital Course Hospital Course Kristen is doing well in her postoperative state. Her pain has been managed with medications orally. She has worked with physical therapy and has been safe for discharge, as her other medical comorbidities have been well-managed. She has been seen by the hospitalist service and they are in agreement with this. She will be discharging to an inpatient acute rehabilitation facility. Her family is in agreement with this. Continues to wear her posterior splint with stirrup and sling. Pain medications have been sent for the meds to beds program and they will take this prescription with them to the facility. Expected to follow- up Dr. Cristóbal Morris on June 15, 2025 for postoperative evaluation. Physical Exam Const: COMMON NORMALS: no acute distress, average body habitus, patient oriented x3, no limitations, alert and well nourished GENERAL APPEARANCE: cooperative; not anxious and not combative ORIENTATION/CONSCIOUSNESS: Yes awake, Yes oriented to person, Yes oriented to place and Yes oriented to time HENMT: COMMON NORMALS: normocephalic and atraumatic HEAD & SCALP: normocephalic and atraumatic Resp: COMMON NORMALS: normal respiratory effort Extremity: RIGHT UPPER EXTREMITY: Yes elbow joint (Postoperative dressing and splint (posterior with stirrup) in place.) Right elbow: Yes other (Noted dried bloody discharge to postop dressings. No purulent drainage.) and Yes hand & digits Right hand and digits: Yes ROM exam (Able to wiggle all fingers.) and Yes neurovascular exam (Sensation intact to light touch. Rapid cap refill.) OTHER: Denies numbness, tingling or burning to RUE. Neuro: COMMON NORMALS: patient oriented x3 SENSORIUM/ORIENTATION: Yes alert, Yes oriented to person, Yes oriented to place and Yes oriented to time Psych: ATTITUDE: Yes engaged Skin: COMMON NORMALS: no rashes or lesions noted, turgor normal and no jaundice GENERAL SKIN EXAM: no rashes or lesions noted and turgor normal Discharge Data Studies Completed and Pending Completed Studies During Hospitalization Category Date Time Status XR hip RT 1V wo/w pel [id number] Routine Exams 05/27/25 15:03 Completed Pending at discharge Category Date Time Status C-arm Fluoroscopy 90000 Routine Exams 05/27/25 11:56 Taken Radiology Impressions Hip X-Ray 05/27/25 15:03 IMPRESSION: 1. No fracture. Degenerative change. Laboratory Results WBC 12.89 10^3/uL (3.29-11.43) H 05/27/25 23:37 RBC 3.51 10^6/uL (3.85-5.65) L 05/27/25 23:37 Hgb 10.20 g/dL (11.27-16.99) L 05/27/25 23:37 Hct 31.7 % (36-47) L 05/27/25 23:37 MCV 90.3 fl (85-98) 05/27/25 23:37 MCH 29.1 pg (27-33) 05/27/25 23:37 MCHC 32.2 g/dL (30-55) 05/27/25 23:37 RDW 14.1 % (12.1-15.1) 05/27/25 23:37 Plt Count 235 10^3/cmm (157-399) 05/27/25 23:37 MPV 10.0 fL (7.4-10.4) 05/27/25 23:37 Neut % (Auto) 91.2 % 05/27/25 23:37 Lymph % (Auto) 4.0 % 05/27/25 23:37 Briscoe % (Auto) 4.1 % 05/27/25 23:37 Eos % (Auto) 0.0 % 05/27/25 23:37 Baso % (Auto) 0.2 % 05/27/25 23:37 Neut # (Auto) 11.75 10^3/uL (1.8-7.7) H 05/27/25 23:37 Lymph # (Auto) 0.5 10^3/uL (0.8-4.8) L 05/27/25 23:37 Briscoe # (Auto) 0.5 10^3/uL (0.2-0.9) 05/27/25 23:37 Eos # (Auto) 0.0 10^3/uL (0.0-0.8) 05/27/25 23:37 Baso # (Auto) 0.0 10^3/uL (0.0-0.1) 05/27/25 23:37 Nucleated RBC % (auto) 0 % 05/27/25 23:37 Nucleated RBCs # 0.0 /100WBC 05/27/25 23:37 Sodium 134 mmol/L (136-145) L 05/27/25 23:37 Potassium 4.7 mmol/L (3.5-5.1) 05/27/25 23:37 Chloride 103 mmol/L (98-107) 05/27/25 23:37 Carbon Dioxide 20 mmol/L (22-29) L 05/27/25 23:37 Anion Gap 15.7 (5-19) 05/27/25 23:37 BUN 18 mg/dL (8-23) 05/27/25 23:37 Creatinine 0.9 mg/dL (0.5-0.9) 05/27/25 23:37 GFR Calculation Not Reportable 05/27/25 23:37 Glucose 189 mg/dL (65-115) H 05/27/25 23:37 POC Glucose 110 mg/dL (70-110) 05/29/25 06:04 Calculated Osmolality 285 mOsm/kg (285-295) 05/27/25 23:37 Calcium 8.1 mg/dL (8.5-10.5) L 05/27/25 23:37 Vitals Last Vital Signs Temp 98.3 F 05/29/25 09:12 Pulse 73 05/29/25 09:12 Resp 16 05/29/25 09:12 BP 96/56 05/29/25 09:12 Pulse Ox 90 05/29/25 09:12 O2 Del Method Room Air 05/29/25 07:24 O2 Flow Rate 2 05/27/25 20:00 Discharge Plan Discharge Patient Disposition: Xfer Inpatient Rehab Fac Condition: Stable Prescriptions: New hydrocodone-acetaminophen 5-325 mg tablet 1 tab PO Q6H PRN (Reason: pain) 5 Days Qty: 20 0RF Continued benazepril 40 mg tablet 40 mg PO DAILY Qty: 90 1RF cyanocobalamin (vitamin B-12) 1,000 mcg/mL solution 1,000 mcg IM .every 8 weeks Qty: 3 1RF furosemide 20 mg tablet 20 mg PO DAILY Qty: 90 1RF levothyroxine 50 mcg tablet 50 mcg PO DAILY Qty: 90 1RF lovastatin 40 mg tablet 40 mg PO DAILY Qty: 90 1RF potassium chloride 10 mEq capsule, extended release 10 meq PO EVERY OTHER DAY Qty: 45 1RF (DME) OneTouch Ultra Test Strip See Rx Instructions .Route Qty: 50 5RF Rx Instructions: one day cefuroxime axetil 250 mg tablet 250 mg PO Q12H Qty: 14 0RF metformin 500 mg tablet extended release 24 hr 500 mg PO BID An/Sqq 89(V)15 [employer] Journeyman OK for DC: Hospitalist Discharge Order = DC NOW: Discharge Order (Routine); Ordered 05/29/25 Ordered By: Vicki Trejo Referrals: Cristóbal Morris MD [Physician, Orthopedics] - 06/15/25 3:15 pm Discharge Diet: Advance as tolerated Discharge Activity: Limit activity as instructed Patient Instructions: Hydrocodone/Acetaminophen (By mouth), Elbow Fracture (DC), Acute Wound Care (DC), Post Anesthesia Care Activity Restrictions/Additional Instructions: Continue splint and sling. Maintain postoperative dressings. No lifting with the right upper extremity. Follow-up in the clinic 2-3 weeks postoperatively. Print Language: Barbadian Discharge Attestations Time Spent in Discharge Care*: greater than 30 min Quality Metrics Clinical Quality Measures [ No reported AMI, CVA or VTE this stay] Coding Level of Care Code Acute Code for Chg Fwd Diagnoses Other closed displaced fracture of distal end of right humerus with routine healing, subsequent encounter S42.491D Encounter type: subsequent encounter Fracture alignment: displaced Fracture healing: with routine healing Fracture morphology: other fracture Fracture type: closed Humerus Location: distal Controlled type 2 diabetes mellitus with hyperglycemia, without long-term current use of insulin E11.65 Essential hypertension I10 Mixed hyperlipidemia E78.2 Shuffling gait R26.89
== END 2025-05-29 09:14 ==
LOC: OR 08:57 → MEDSURG 15:38
PROVIDERS: Anesthesiology; PCP Nurse Practitioner; Visit Provider Orthopaedic Surgery
PROC: (CPT 24586; principal; 2025-05-27 10:25)
DX: S42.401A Unspecified fracture of lower end of right humerus, initial encounter for closed fracture (principal); W19.XXXA Unspecified fall, initial encounter; I10 Essential (primary) hypertension; E78.2 Mixed hyperlipidemia; K57.30 Diverticulosis of large intestine without perforation or abscess without bleeding; E07.9 Disorder of thyroid, unspecified; Z79.84 Long term (current) use of oral hypoglycemic drugs; E11.65 Type 2 diabetes mellitus with hyperglycemia
CPT/HCPCS: 24586; 36415; 36416; 73070; 73501; 76000; 80048; 82962; 85025; 97110; 97116; 97162; 97167; 97530; C1713; J0131; J1100; J1885; J2405; J2704; J2795; J3010; J3490; J7030; J9999; P9047

== ENCOUNTER → 2025-06-15 15:21 | Outpatient (BNVA) | payer MEDICARE, BC, SELFPAY | PROVIDERS: PCP Nurse Practitioner; Visit Provider Orthopaedic Surgery | DX: S42.491D Other displaced fracture of lower end of right humerus, subsequent encounter for fracture with routine healing (principal); X58.XXXD Exposure to other specified factors, subsequent encounter | CPT/HCPCS: 73060; 73070; 99024 ==

== ENCOUNTER → 2025-06-29 14:10 | Outpatient (BNVA) | payer MEDICARE, BC, SELFPAY | PROVIDERS: PCP Nurse Practitioner; Visit Provider Orthopaedic Surgery | DX: Z98.890 Other specified postprocedural states (principal) | CPT/HCPCS: 99024 ==

== ENCOUNTER → 2025-07-14 13:12 | Outpatient (BNVA) | payer MEDICARE, BC, SELFPAY | PROVIDERS: PCP Nurse Practitioner; Visit Provider Orthopaedic Surgery | DX: S42.491D Other displaced fracture of lower end of right humerus, subsequent encounter for fracture with routine healing (principal); M85.821 Other specified disorders of bone density and structure, right upper arm; M19.011 Primary osteoarthritis, right shoulder; X58.XXXD Exposure to other specified factors, subsequent encounter | CPT/HCPCS: 73060; 99024 ==

== ENCOUNTER 2025-07-24 05:53 | Day surgery (SDC) | payer MEDICARE, BC, SELFPAY ==
[2025-07-24] VITALS (9 sets, daily range): BP systolic 138–166; BP diastolic 71–91; PULSE 54–69; RESP 12–18; TEMP 36.3–37.2; O2SAT 94–98; BMI 25.4
--- NOTE | 2025-07-24 06:41 | W.PM.OPSFHP ---
Same Day Surgery H&P Indication for Procedure/HPI DATE OF PROCEDURE: July 24, 2025 CHIEF COMPLAINT/INDICATIONFOR SURGICAL PROCEDURE: Fracture right humerus status post ORIF PREOP DIAGNOSIS: Retained hardware right humerus PLANNED PROCEDURE: Operation Date: 07/24/25 07:00 Proposed Procedures p Hardware Removal of Flexible Rods RIGHT Humerus(Right) - Cristóbal Morris MD Kristen is an 85-year-old white female who fractured her right humerus back in May of this year. Subsequently was found to be unstable and therefore was offered surgical intervention at that time. Patient subsequently underwent open reduction internal fixation of her right humerus fracture. She now has retained flexible rods that stand outside of her skin that need to be removed at this point. ROS Refer to H&P of 05/20/2025 Medications/Allergies* Home Medications ?Medication ?Instructions ?Recorded ?Confirmed ?Type famotidine 20 mg tablet 20 mg PO DAILY 06/15/25 07/21/25 History aspirin 325 mg tablet 325 mg PO DAILY 06/29/25 07/21/25 History Allergies/Adverse Reactions Allergy/AdvReac Type Severity Reaction Status Date / Time Penicillins Allergy ALGY-Rash Verified 07/24/25 06:07 Pertinent History/Comorbid Conditions* Medical History (Updated 06/15/25 @ 16:43 by Cristóbal Morris MD) Shuffling gait Pre-diabetes Small vessel disease, cerebrovascular Controlled diabetes mellitus with hyperglycemia, without long-term current use of insulin Essential hypertension Mixed hyperlipidemia Diverticulosis Adult onset hypothyroidism Surgical History (Updated 12/25/19 @ 08:52 by ANTHONY Tirado) History of colonoscopy with polyp H/O total hysterectomy History of cholecystectomy Family History (Updated 12/25/19 @ 09:48 by ANTHONY Tirado) Heart disease Hyperlipidemia Cancer Social History Smoking and tobacco/nicotine status: never used tobacco/nicotine Second hand smoke exposure: No Alcohol intake: never Substance/Drug Use: never Additional social history: She wants full code as discussed with Octavio Berman MD and in the presence of her daughter Farida. Farida is a retired sand tester at a bank in [place]. 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
--- NOTE | 2025-07-24 06:43 | ANES.PREANE2 ---
Pre-Anesthetic Assessment Height/Weight: Height 1.6 m Weight 65.317 kg Temp Pulse Resp BP Pulse Ox O2 Del Method 99.0 F 69 18 166/87 94 Room Air 07/24/25 06:09 07/24/25 06:09 07/24/25 06:09 07/24/25 06:09 07/24/25 06:09 07/24/25 06:11 Operation Date: 07/24/25 07:00 Proposed Procedures p Hardware Removal of Flexible Rods RIGHT Humerus(Right) - Cristóbal Morris MD Familial anesthetic complications: none Was Beta Britt taken within 24 hours: N/A Was Clonidine taken within 24 hours: N/A Last intake: Intake Last Liquid Date 07/23/25 Last Liquid Time 17:30 Last Solid Date 07/23/25 Last Solid Time 17:30 Social No alcohol and No tobacco Exam alert, oriented x 3, clear to auscultation bilaterally and regular rate & rhythm Airway Mallampati: Class II Dentition: full CV/HEM Hypertension GI Gastroesophageal Reflux Disease Metabolic Hyperlipidemia and Thyroid Disease Anesthetic Plan ASA status: 3 Anesthesia: General Risk of > 500 ml blood loss (7ml/kg in children): No Medications/Allergies Home Medications ?Medication ?Instructions ?Recorded ?Confirmed ?Last Taken ?Type blood sugar diagnostic (OneTouch #50 ea 01/12/25 07/14/25 Unknown Rx Ultra Test strips) cyanocobalamin (vitamin B-12) 1,000 mcg IM .every 8 weeks #3 mL 01/12/25 07/21/25 07/23/25 Rx 1,000 mcg/mL injection solution carbidopa 10 mg-levodopa 100 mg 1 tab PO BID #180 tabs 06/10/25 07/21/25 07/23/25 Rx tablet (Sinemet) famotidine 20 mg tablet 20 mg PO DAILY 06/15/25 07/21/25 07/23/25 History atorvastatin 20 mg tablet (Lipitor) 20 mg PO DAILY #90 tabs 06/16/25 07/21/25 07/23/25 Rx levothyroxine 50 mcg tablet 50 mcg PO DAILY #90 tabs 06/16/25 07/21/25 07/23/25 Rx losartan 25 mg tablet 25 mg PO DAILY #90 tabs 06/16/25 07/21/25 07/21/25 Rx aspirin 325 mg tablet 325 mg PO DAILY 06/29/25 07/21/25 07/21/25 History Allergies Allergy/AdvReac Type Severity Reaction Status Date / Time Penicillins Allergy ALGY-Rash Verified 07/24/25 06:07 [facility] Anesthesia Medical History Shuffling gait Pre-diabetes Small vessel disease, cerebrovascular Controlled diabetes mellitus with hyperglycemia, without long-term current use of insulin Essential hypertension Mixed hyperlipidemia Diverticulosis Adult onset hypothyroidism Surgical History History of colonoscopy with polyp H/O total hysterectomy History of cholecystectomy Family History Other Cancer Heart disease Hyperlipidemia Social History Smoking and tobacco/nicotine status: never used tobacco/nicotine Second hand smoke exposure: No Alcohol intake: never Substance/Drug Use: never Additional social history: She wants full code as discussed with Octavio Berman MD and in the presence of her daughter Farida. Farida is a retired community specialist at a [employer] in [place]. 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
--- NOTE | 2025-07-24 07:33 | PM.OP ---
Operative Report Date of procedure: July 24, 2025 Surgeon: Cristóbal Morris MD Procedure: Preoperative diagnosis: Retained hardware right humerus, flexible rods Postoperative diagnosis: Same Procedure: Removal of flexible rods right humerus Surgeon: Cristóbal Morris MD Anesthesia: General EBL: 0 Indications: Kristen is an 85-year-old white female who fractured her right humerus back in May of this year. Subsequently she underwent an open reduction internal fixation with flexible rods by myself at that time. She is now gone on to demonstrate good healing with good callus formation. Pins are external on her arm and therefore need to be removed at this time. All risk benefits treatment alternatives discussed with she and her daughter and they are agreeable to this at this time. Procedure: After obtaining her consent patient was taken to the operating room and placed on the operative table and general anesthetic was administered. Once Konesky was achieved right upper extremities prepped and draped usual fashion. After surgical timeout pins were able to be pulled out manually without much difficulty. There was bleeding from the lateral wound. This was sutured closed with a single interrupted stitch of 3-0 Prolene. Wounds are clean and dry dressed with Xeroform gauze sterile gauze dressing Kerlix wrap and Colby wrap for compression. Patient was awakened transferred to cover room in stable condition
--- NOTE | 2025-07-24 07:38 | PC.NURSE ---
LMA removed by [employer]
--- NOTE | 2025-07-24 08:40 | ANE.PACU2 ---
Inpatient post-anesthesia follow up: Airway intact: Yes Vital signs: Temperature 98.3 F Pulse Rate 61 Respiratory Rate 16 Blood Pressure 141/91 Pulse Oximetry 97 Oxygen Delivery Me thod Room Air Oxygen Flow Rate Fraction of Inspir ed Oxygen Hydration adequate: Yes Nausea and vomiting: No Pain level: 1 Mental status: Baseline
--- NOTE | 2025-07-24 08:44 | SUR.PHASEII ---
Report called to [facility]-spoke with sudha moses. Patient left in wheelchair with [facility] transport to skilled nursing. PAtient awake and alert and orientedx4, no complaints of pain, dressing to right arm inplace and dry.
--- NOTE | 2025-07-24 08:47 | SUR.PHASEII ---
PAtient d/c packet faxed to [facility] and copy sent with family to [facility]
--- NOTE | 2025-07-24 11:25 | XR_ITS ---
WS: [id number] [place] [id number] REASON FOR EXAM: Removal of flexible rods right humerus FINDINGS: Removal of longitudinal transepicondylar intramedullary rods. Wire banding of the distal humerus remains. Distal humeral fracture, presumed healed, unchanged in alignment and apposition compared to preprocedure examinations. XR/[place] [address] IMPRESSION: Hardware removal as above.
== END 2025-07-24 08:41 | disposition home or self-care (01) ==
PROVIDERS: PCP Nurse Practitioner; Visit Provider Orthopaedic Surgery
PROC: (CPT 20680; principal; 2025-07-24 07:00)
DX: T84.84XA Pain due to internal orthopedic prosthetic devices, implants and grafts, initial encounter (principal); Y70.2 Prosthetic and other implants, materials and accessory anesthesiology devices associated with adverse incidents; Z79.82 Long term (current) use of aspirin; I10 Essential (primary) hypertension; E78.2 Mixed hyperlipidemia; E03.9 Hypothyroidism, unspecified; E11.65 Type 2 diabetes mellitus with hyperglycemia; K21.9 Gastro-esophageal reflux disease without esophagitis
CPT/HCPCS: 20680; 73060; 76000; J2704; J3010; J3490; J9999

== ENCOUNTER → 2025-08-04 15:02 | Outpatient (BNVA) | payer MEDICARE, BC, SELFPAY | PROVIDERS: PCP Nurse Practitioner; Visit Provider Orthopaedic Surgery | DX: S42.491D Other displaced fracture of lower end of right humerus, subsequent encounter for fracture with routine healing (principal); X58.XXXA Exposure to other specified factors, initial encounter | CPT/HCPCS: 73060; 99024 ==